=== PATIENT | female | born 1945 | race Caucasian/White ===

== ENCOUNTER → 2017-09-26 12:31 | Outpatient (CLI) | payer MEDICARE, SELFPAY ==
--- NOTE | 2017-09-26 | DI.MG.S_ITS ---
BILATERAL DIGITAL SCREENING MAMMOGRAM 3D/2D WITH CAD: 09/26/2017 CLINICAL: Routine screening. Family history of breast cancer. Comparison is made to exams dated: 09/22/2016 mammogram, 01/23/2015 mammogram, and 01/14/2014 mammogram - [facility]. The tissue of both breasts is extremely dense, which lowers the sensitivity of mammography. Current study was also evaluated with a Computer Aided Detection (CAD) system. There is architectural distortion in the right breast at 1 o'clock middle depth. There is an asymmetry in the left breast sub-areolar depth central to the nipple seen on the mediolateral oblique view only. No other significant masses or calcifications are seen in either breast. IMPRESSION: INCOMPLETE: NEEDS ADDITIONAL IMAGING EVALUATION The architectural distortion in the right breast at 1 o'clock middle depth is indeterminate. Additional views with possible ultrasound are recommended. The asymmetry in the left breast sub-areolar depth central to the nipple seen on the mediolateral oblique view only is indeterminate. Additional views with possible ultrasound are recommended. This exam was interpreted at Station ID: [id number]. NOTE: For mammograms, a report in lay terms will be sent to the patient. Approximately 15% of breast malignancies will not be visualized mammographically. In the management of a palpable breast mass, a negative mammogram must not discourage biopsy of a clinically suspicious lesion. Electronically Signed By: Luther villagran/alejandrina:09/29/2017 13:38:12 letter sent: Additional Imaging Needed ACR BI-RADS Category 0: Incomplete 3340F
== END ==
PROVIDERS: PCP Internal Medicine; Visit Provider Internal Medicine
DX: Z12.31 Encounter for screening mammogram for malignant neoplasm of breast (principal); Z80.3 Family history of malignant neoplasm of breast
CPT/HCPCS: 77063; 77067

== ENCOUNTER → 2017-10-11 13:44 | Outpatient (CLI) | payer MEDICARE, SELFPAY ==
--- NOTE | 2017-10-11 14:13 | DI.MG.S_ITS ---
Patient Name: KAREEN BYRNE date: 1945 Sex: F Attending Physician: Everette Indications: Date: 10/11/2017 14:39 At the request of: NIGEL VALVERDE Procedure: MM diagnostic mammo BI BILATERAL DIGITAL DIAGNOSTIC MAMMOGRAM 3D/2D: 10/11/2017 CLINICAL: Additional evaluation requested from prior study. Comparison is made to exams dated: 09/26/2017 mammogram, 09/22/2016 mammogram, and 01/23/2015 mammogram - [facility]. The tissue of both breasts is extremely dense, which lowers the sensitivity of mammography. Architectural distortion identified in the right breast at 1 o'clock middle depth on screening mammography of 09/26/2017 persists with spot tomosynthesis views. Asymmetry in the left breast sub-areolar depth central to the nipple seen on the mediolateral oblique view only on screening mammography of 09/26/2017 resolves with spot tomosynthesis views. No other significant masses, calcifications, or other findings are seen in either breast. IMPRESSION: INCOMPLETE: NEEDS ADDITIONAL IMAGING EVALUATION 1) Architectural distortion identified in the right breast at 1 o'clock middle depth on screening mammography of 09/26/2017 persists with spot tomosynthesis views and is at a moderate suspicion for malignancy. Targeted ultrasound recommended for further evaluation; should targeted ultrasound not demonstrate an abnormality targetable for ultrasound-guided biopsy, a stereotactic guided biopsy is recommended. 2) Asymmetry in the left breast sub-areolar depth central to the nipple seen on the mediolateral oblique view only on screening mammography of 09/26/2017 resolves with spot tomosynthesis views. Targeted ultrasound recommended for further evaluation. This exam was interpreted at Station ID: [id number]. Continued Report - Page 2 of 2 Patient Name: KAREEN BYRNE date: 1945 Sex: F Attending Physician: Everette Indications: Date: 10/11/2017 14:39 At the request of: NIGEL VALVERDE Procedure: MM diagnostic mammo BI NOTE: For mammograms, a report in lay terms will be sent to the patient. Approximately 15% of breast malignancies will not be visualized mammographically. In the management of a palpable breast mass, a negative mammogram must not discourage biopsy of a clinically suspicious lesion. Electronically Signed By: Kumar Pollard M.D. ecl/:10/11/2017 20:04:13 letter sent: Additional Imaging Needed ACR BI-RADS Category 0: Incomplete 3340F
--- NOTE | 2017-10-11 15:07 | DI.US.S_ITS ---
Patient Name: KAREEN BYRNE date: 1945 Sex: F Attending Physician: Everette Indications: Date: 10/11/2017 15:35 At the request of: NIGEL VALVERDE Procedure: US breast RT limited ULTRASOUND OF RIGHT BREAST: 10/11/2017 CLINICAL: Follow up from addtional views. Comparison is made to exams dated: 10/11/2017 mammogram, 09/26/2017 mammogram, and 09/22/2016 mammogram - [facility]. Real-time and Doppler ultrasound of the right breast were performed. Hoyt scale images of the real-time examination were reviewed. Targeted ultrasonography was performed for the area of architectural distortion identified in the right breast at 1 o'clock middle depth on screening mammography of 09/26/2017 and diagnostic mammomgraphy of 10/11/2017. No correlating sonographic abnormality is identified. IMPRESSION: SUSPICIOUS OF MALIGNANCY - FOLLOW-UP RECOMMENDED No sonographic correlate identified for the area of architectural distortion identified in the right breast at 1 o'clock middle depth on screening mammography of 09/26/2017 and diagnostic mammomgraphy of 10/11/2017. Recommend stereotactic guided-biopsy of this area for further evaluation. These results and recommendations were discussed with the patient by Dr. Efrain Ram of [facility] at the time of the exam. This exam was interpreted at Station ID: [id number]. Electronically Signed By: Kumar Pollard M.D. ecl/:10/11/2017 20:08:30 letter sent: Biopsy Required Ultrasound BI-RADS: 4b Suspicious abnormality - intermediate suspicion of malignancy
--- NOTE | 2017-10-11 15:11 | DI.US.S_ITS ---
Patient Name: KAREEN BYRNE date: 1945 Sex: F Attending Physician: Everette Indications: Date: 10/11/2017 15:35 At the request of: NIGEL VALVERDE Procedure: US breast LT limited ULTRASOUND OF LEFT BREAST: 10/11/2017 CLINICAL: Follow up from addtional views. Comparison is made to exams dated: 10/11/2017 mammogram, 09/26/2017 mammogram, and 09/22/2016 mammogram - [facility]. Real-time and Doppler ultrasound of the left breast were performed. Hoyt scale images of the real-time examination were reviewed. Targeted retroareolar ultrasound demonstrates no sonographic abnormality. Asymmetry in the left breast sub-areolar depth central to the nipple seen on the mediolateral oblique view only on screening mammography of 09/26/2017 resolves with spot tomosynthesis views. Targeted ultrasound recommended for further evaluation. IMPRESSION: NEGATIVE There is no sonographic evidence of malignancy in the left breast. Return to annual mammogram screening schedule for the left breast is recommended. Please note that a stereotactic guided biopsy of the right breast was recommended in the diagnostic mammography and ultrasound exams performed earlier today 10/11/17. This exam was interpreted at Station ID: [id number]. Electronically Signed By: Kumar Pollard M.D. ecl/:10/11/2017 20:16:47 letter sent: Normal Exam Ultrasound BI-RADS: 1 Negative
== END ==
PROVIDERS: PCP Internal Medicine; Visit Provider Internal Medicine
DX: R92.8 Other abnormal and inconclusive findings on diagnostic imaging of breast (principal); N64.89 Other specified disorders of breast
CPT/HCPCS: 76642; 77066; G0279

== ENCOUNTER → 2017-11-10 13:47 | Outpatient (CLI) | payer MEDICARE, SELFPAY | PROVIDERS: PCP Internal Medicine; Visit Provider Internal Medicine | DX: M85.852 Other specified disorders of bone density and structure, left thigh (principal); Z78.0 Asymptomatic menopausal state; Z82.62 Family history of osteoporosis; Z87.891 Personal history of nicotine dependence | CPT/HCPCS: 77080 ==

== ENCOUNTER → 2017-11-30 12:02 | Outpatient (CLI) | payer MEDICARE, SELFPAY ==
[2017-11-30 12:57] LABS: Blood Urea Nitrogen 18 mg/dL (7-17); Calcium 9.3 mg/dL (8.4-10.2); Carbon Dioxide 29 mmol/L (22-32); Chloride 93 mmol/L (98-107); Estimated Glomerular Filt Rate > 60.0 mL/min (>60); Glucose 88 mg/dL (80-110); HEMOLYSIS < 15 (0-50); Potassium 4.5 mmol/L (3.4-5.1); Sodium 132 mmol/L (137-145)
== END ==
PROVIDERS: PCP Internal Medicine; Visit Provider Internal Medicine Cardiovascular Disease
DX: R60.0 Localized edema (principal)
CPT/HCPCS: 36415; 80048

== ENCOUNTER → 2017-12-07 14:16 | Outpatient (CLI) | payer MEDICARE, SELFPAY ==
[2017-12-08 16:25] LABS: Collection Time Urine 24 Hours; Sodium 24 Hour Urine 69 mmol/day (40-220); Sodium Urine Random 23 mmol/L (30-90); Total Volume Urine 3000 mL
== END ==
PROVIDERS: PCP Internal Medicine; Visit Provider Internal Medicine Cardiovascular Disease
DX: E87.1 Hypo-osmolality and hyponatremia (principal)
CPT/HCPCS: 84300

== ENCOUNTER → 2017-12-08 14:16 | Outpatient (CLI) | payer MEDICARE, SELFPAY | PROVIDERS: PCP Internal Medicine; Visit Provider Internal Medicine Cardiovascular Disease | DX: E87.1 Hypo-osmolality and hyponatremia (principal) ==

== ENCOUNTER → 2017-12-20 13:49 | Outpatient (CLI) | payer MEDICARE, SELFPAY ==
[2017-12-20 15:24] LABS: Alanine Aminotransferase 20 IU/L (9-52); Albumin 4.1 g/dL (3.5-5.0); Albumin Globulin Ratio 1.8 (1.0-2.8); Alkaline Phosphatase 34 U/L (38-126); Aspartate Aminotransferase 21 IU/L (14-36); BUN Creatinine Ratio 26.7 (6-22); Bilirubin Total 0.4 mg/dL (0.2-1.3); Blood Urea Nitrogen 16 mg/dL (7-17); Calcium 9.6 mg/dL (8.4-10.2); Carbon Dioxide 32 mmol/L (22-32); Chloride 100 mmol/L (98-107); Estimated Glomerular Filt Rate > 60.0 mL/min (>60); Globulin 2.3 g/dL (1.7-4.1); Glucose 85 mg/dL (80-110); HEMOLYSIS < 15 (0-50); Potassium 4.3 mmol/L (3.4-5.1); Sodium 139 mmol/L (137-145); Total Protein 6.4 g/dL (6.3-8.2)
[2017-12-20 17:21] LABS: Thyroid Stimulating Hormone 3.01 uIU/mL (0.47-4.68)
[2017-12-22 15:59] LABS: Osmolality, Serum 290 mosm/kg (260-310)
== END ==
PROVIDERS: Family Provider Internal Medicine; PCP Internal Medicine; Visit Provider Internal Medicine Cardiovascular Disease
DX: R60.9 Edema, unspecified (principal); R60.0 Localized edema; E87.1 Hypo-osmolality and hyponatremia
CPT/HCPCS: 36415; 80053; 83930; 84443

== ENCOUNTER → 2018-04-11 14:04 | Outpatient (CLI) | payer MEDICARE, SELFPAY ==
--- NOTE | 2018-04-11 | DI.CT.S_ITS ---
PROCEDURE: CT ANGIO CHEST PE PROTOCOL INDICATIONS: CHEST PAIN TECHNIQUE: After the administration of intravenous contrast, 2 mm thick sections acquired from the pulmonary apices to the posterior costophrenic angles. 3-dimensional maximum intensity projection (MIP) coronal and sagittal reformats were then acquired through the thorax. For radiation dose reduction, the following was used: automated exposure control, adjustment of mA and/or kV according to patient size. COMPARISON: None. FINDINGS: Image quality: Excellent. Pulmonary arteries: Pulmonary arteries are normal in size, and demonstrate no intraluminal filling defects to suggest central pulmonary embolism. Lungs and pleura: Lungs are clear. No pleural effusions or pneumothorax. Central and peripheral airways are patent. Mediastinum: Heart size is normal, without pericardial effusion. No mediastinal or hilar adenopathy. Thoracic aorta is normal in caliber and enhancement. Esophagus is normal in caliber, without hiatal hernia. Bones and chest wall: No suspicious bony lesions. Ribs and thoracic spine appear intact throughout. Thyroid gland is unremarkable. No axillary or supraclavicular adenopathy. Abdomen: Visualized upper abdominal solid organs appear normal in the early arterial phase of enhancement. IMPRESSION: 1. No acute pulmonary embolus. Dictated by: Celsa Weinberg M.D. on 04/11/2018 at 15:44 Approved by: Celsa Weinberg M.D. on 04/11/2018 at 15:51
[2018-04-11 14:39] LABS: Blood Urea Nitrogen 30 mg/dL (7-17); Estimated Glomerular Filt Rate 54.5 mL/min (>60)
== END ==
PROVIDERS: Family Provider Internal Medicine; PCP Internal Medicine; Visit Provider Internal Medicine
DX: R07.9 Chest pain, unspecified (principal); I10 Essential (primary) hypertension
CPT/HCPCS: 36415; 71275; 82565; 84520; Q9967

== ENCOUNTER → 2018-08-28 12:44 | Outpatient (CLI) | payer MEDICARE, SELFPAY ==
--- NOTE | 2018-08-28 | DI.MG.S_ITS ---
BILATERAL DIGITAL DIAGNOSTIC MAMMOGRAM 3D/2D SHORT-TERM FOLLOW-UP: 08/28/2018 CLINICAL: Late short follow up, due bilateral. Family history of breast cancer. Comparison is made to exams dated: 11/21/2017 breast MRI - [facility], 10/11/2017 mammogram, 09/26/2017 mammogram, and 09/22/2016 mammogram - [facility]. The tissue of both breasts is extremely dense, which lowers the sensitivity of mammography. There is irregular equal density architectural distortion with an indistinct margin in the right breast at 1 o'clock middle depth. This is not significantly changed. No other significant masses, calcifications, or other findings are seen in either breast. IMPRESSION: INCOMPLETE: NEEDS ADDITIONAL IMAGING EVALUATION The irregular equal density architectural distortion in the right breast is indeterminate. An ultrasound is recommended. This exam was interpreted at Station ID: [id number]. NOTE: For mammograms, a report in lay terms will be sent to the patient. Approximately 15% of breast malignancies will not be visualized mammographically. In the management of a palpable breast mass, a negative mammogram must not discourage biopsy of a clinically suspicious lesion. Electronically Signed By: Nimesh leyva/alejandrina:08/28/2018 13:26:43 letter sent: Need Ultrasound ACR BI-RADS Category 0: Incomplete 3340F
--- NOTE | 2018-08-28 | DI.US.S_ITS ---
LIMITED ULTRASOUND OF RIGHT BREAST: 08/28/2018 CLINICAL: Patient returns today to evaluate an architectural distortion in the right breast. Comparison is made to exams dated: 08/28/2018 mammogram - [facility], 11/21/2017 breast MRI - [facility], 10/11/2017 ultrasound, 10/11/2017 ultrasound, 10/11/2017 mammogram, and 09/26/2017 mammogram - [facility]. Real-time ultrasound of the right breast upper inner quadrant was performed on the area of interest. IMPRESSION: PROBABLY BENIGN There is no abnormality seen in the right breast to correspond with the mammography finding in the upper inner quadrant. A follow-up mammogram in 12 months is recommended. This exam was interpreted at Station ID: [id number]. Electronically Signed By: Nimesh leyva/alejandrina:08/28/2018 17:32:44 letter sent: Followup Recommended Ultrasound BI-RADS: 3 Probably benign
== END ==
PROVIDERS: Family Provider Internal Medicine; PCP Internal Medicine; Visit Provider Internal Medicine
DX: R92.8 Other abnormal and inconclusive findings on diagnostic imaging of breast (principal); Z80.3 Family history of malignant neoplasm of breast
CPT/HCPCS: 76642; 77066; G0279

== ENCOUNTER 2018-12-11 09:36 | Day surgery (SDC) | payer MEDICARE, SELFPAY ==
[2018-12-11] MEDS: PROPARACAINE 0.5% OPHTH SOL 2 DROPS EYE-OP (10:40)
[2018-12-11] MEDS: CATARACT EYE COMPOUND (10 DROPS/SYRINGE) 3 DROPS EYE-OP (10:42)
[2018-12-11 10:44] VITALS: BP 115/76; PULSE 77; RESP 16; TEMP 36.6; O2SAT 98; BMI 19.7
--- NOTE | 2018-12-11 11:52 | PM.PREOP ---
Pre-operative Note Interval Note History & Physical reviewed/Exam performed by Physician: No Changes to H&P: No
--- NOTE | 2018-12-11 11:52 | PM.OP.1 ---
Operative Date/Time/Diagnoses Pre-op diagnosis: Nuclear cataract right eye Procedure & Clinicians Procedure: Cataract Surgery Same procedure as scheduled: Yes Surgeon: Boston Lagunas Anesthesia Type: MAC +/- and Sedation Operative Notes Procedure in detail: Patient brought to the operating suite. Tetracaine drops placed in the right eye. Patient was prepped and draped in sterile manner. Wire lid speculum was placed in the eye. Betadine drops were placed on the eye. This was irrigated. Lidocaine jelly was placed on the eye. A paracentesis port was created with a side-port blade. 0.1 mL 1% preservative free lidocaine was injected into the anterior chamber. The anterior chamber was deepened with viscoelastic. 2.6 mm keratome was used to create a temporal clear corneal incision. Cystotome and Utrata forceps were used to create continuous tear capsulorrhexis. Balanced salt solution was used to hydro dissect the nucleus. The miloop was used to crack the nucleous. The phacoemulsification handpiece was inserted and the nucleus was removed using the stop and chop technique. The irrigation aspiration handpiece was inserted and the remaining cortex was removed. Anterior chamber was deepened with viscoelastic. An Gary [id number] intraocular lens with a power of 22.0 was injected into the capsular bag. Irrigation aspiration handpiece was inserted and the remaining viscoelastic was removed. Incision was hydrated with balanced salt solution and found to be leak free with pressure with Weck-Lizzie sponges. 0.1 mL Vigamox injected anterior chamber. 0.3 mL Kenalog 10 mg was injected subconjunctivally. Lid speculum was removed. The patient left the operating room in excellent condition. Complications: none Post-operative Condition: stable Disposition: same day surgery
[2018-12-11] MEDS: LIDOCAINE JELLY 2% 5 ML 1 APPLIC TOP (12:18)
[2018-12-11] MEDS: MOXIFLOXACIN INJ 5 MG/ML VIAL EYE-OP (12:18)
[2018-12-11] MEDS: CHONDROIDTIN/SOD HYALURONATE 1.05 ML SYRINGE INTRAOCULA (12:18)
[2018-12-11] MEDS: TRIAMCINOLONE 50 MG/5 ML VIAL INJ (12:19)
[2018-12-11] MEDS: BALANCED SALT IRRIG SOLN NO.2 500 ML, EPINEPHrine 1 MG IRR (12:19)
[2018-12-11] MEDS: TETRACAINE 0.5% OPHTH DROPS 4 ML 2 DROPS EYE-OP (12:19)
[2018-12-11] MEDS: PHENYLEPHRINE/LIDOCAINE VIAL (OR) 0.2 ML EYE-OP (12:19)
[2018-12-11 12:32] VITALS: BP 122/84; PULSE 74; RESP 14; TEMP 36.3; O2SAT 100
== END 2018-12-11 12:45 | disposition home or self-care (01) ==
LOC: OR 09:38
PROVIDERS: PCP Internal Medicine; Visit Provider Ophthalmology
PROC: (CPT 66984; principal; 2018-12-11 11:15)
DX: H25.11 Age-related nuclear cataract, right eye (principal)
CPT/HCPCS: 66984; J0171; J2250; J3301; V2787

== ENCOUNTER 2018-12-18 07:02 | Day surgery (SDC) | payer MEDICARE, SELFPAY ==
[2018-12-18] MEDS: PROPARACAINE 0.5% OPHTH SOL 2 DROPS EYE-OP (08:01)
[2018-12-18 08:04] VITALS: BP 111/75; PULSE 70; RESP 16; TEMP 36.7; O2SAT 100; BMI 19.7
[2018-12-18] MEDS: CATARACT EYE COMPOUND (10 DROPS/SYRINGE) 3 DROPS EYE-OP (08:05)
--- NOTE | 2018-12-18 08:24 | PM.PREOP ---
Pre-operative Note Interval Note History & Physical reviewed/Exam performed by Physician: No Changes to H&P: No
--- NOTE | 2018-12-18 08:25 | PM.OP.1 ---
Operative Date/Time/Diagnoses Pre-op diagnosis: Nuclear Cataract Left eye Post-op diagnosis: same Procedure & Clinicians Surgeon: Boston Lagunas Anesthesia Type: MAC +/- and Sedation Operative Notes Procedure in detail: Patient brought to the operating suite. Tetracaine drops placed in the left eye. marking instrument was used to karon the vertical and horizontal meridians. Patient was prepped and draped in sterile manner. Wire lid speculum was placed in the eye. Marking instrument was used to karon the 175 degree meridian. Betadine drops were placed on the eye. This was irrigated. Lidocaine jelly was placed on the eye. A paracentesis port was created with a side-port blade. 0.1 mL 1% preservative free lidocaine was injected into the anterior chamber. The anterior chamber was deepened with viscoelastic. 2.6 mm keratome was used to create a temporal clear corneal incision. Cystotome and Utrata forceps were used to create continuous tear capsulorrhexis. Balanced salt solution was used to hydro dissect the nucleus. The phacoemulsification handpiece was inserted and the nucleus was removed using the stop and chop technique. The irrigation aspiration handpiece was inserted and the remaining cortex was removed. Anterior chamber was deepened with viscoelastic. An Gary [id number] intraocular lens with a power of 21.0 was injected into the capsular bag. Irrigation aspiration handpiece was inserted and the remaining viscoelastic was removed. The lens was rotated to the 175 degree meridian. Incision was hydrated with balanced salt solution and found to be leak free with pressure with Weck-Lizzie sponges. 0.1 mL Vigamox injected anterior chamber. 0.3 mL Kenalog 10 mg was injected subconjunctivally. Lid speculum was removed. The patient left the operating room in excellent condition. Complications: none Post-operative Condition: stable Disposition: same day surgery
[2018-12-18] MEDS: LIDOCAINE JELLY 2% 5 ML 1 APPLIC TOP (08:38)
[2018-12-18] MEDS: MOXIFLOXACIN INJ 5 MG/ML VIAL EYE-OP (08:38)
[2018-12-18] MEDS: TRIAMCINOLONE 50 MG/5 ML VIAL INJ (08:38)
[2018-12-18] MEDS: CHONDROIDTIN/SOD HYALURONATE 1.05 ML SYRINGE INTRAOCULA (08:38)
[2018-12-18] MEDS: TETRACAINE 0.5% OPHTH DROPS 4 ML 2 DROPS EYE-OP (08:38)
[2018-12-18] MEDS: BALANCED SALT IRRIG SOLN NO.2 500 ML, EPINEPHrine 1 MG IRR (08:39)
[2018-12-18] MEDS: PHENYLEPHRINE/LIDOCAINE VIAL (OR) 0.2 ML EYE-OP (08:39)
[2018-12-18 08:50] VITALS: BP 115/69; PULSE 60; RESP 16; TEMP 36.6; O2SAT 100
[2018-12-18 08:55] VITALS: BP 97/74; PULSE 69; RESP 15; TEMP 36.3; O2SAT 100
== END 2018-12-18 09:05 | disposition home or self-care (01) ==
LOC: OR 07:04
PROVIDERS: PCP Internal Medicine; Visit Provider Ophthalmology
PROC: (CPT 66984; principal; 2018-12-18 08:45)
DX: H25.12 Age-related nuclear cataract, left eye (principal)
CPT/HCPCS: 66984; J0171; J2250; J3010; J3301; V2787

== ENCOUNTER → 2018-12-20 14:45 | Outpatient (CLI) | payer MEDICARE, SELFPAY ==
--- NOTE | 2018-12-20 | DI.MRI.S_ITS ---
PROCEDURE: MR KNEE LT WO CON INDICATIONS: OTHER SPECIFIED SOFT TISSUE DISORDER TECHNIQUE: Noncontrast sagittal PD fast spin echo and T2 fast spin echo with fat saturation, sagittal 3-D FLASH with fat saturation; coronal T1 spin echo and PD fast spin echo with fat saturation, and axial PD fast spin echo with fat saturation through the knee. COMPARISON: [facility], , KNEE 3V LEFT, 06/22/2017, 12:54. FINDINGS: Image quality: Excellent. Menisci: There is ill-defined tear in the peripheral aspect of the posterior horn of the medial meniscus. The lateral meniscus demonstrates normal morphology and internal signal. The meniscal root ligaments appear intact. Cruciate ligaments: The anterior and posterior cruciate ligaments appear intact. Medial structures: The medial collateral ligament appears intact. The posterior oblique ligament, semimembranosus tendon insertions, oblique popliteal ligament, and meniscocapsular junction appear intact. Visualized portions of the pes anserinus tendons appear normal. No abnormal bursal fluid. Lateral structures: The lateral collateral ligament, long and short heads of the biceps femoris tendon appear intact. The popliteus tendon appears normal; the popliteofibular ligament appears intact. The posterosuperior and anteroinferior popliteomeniscal fascicles appear intact. The arcuate and fabellofibular ligaments appear intact, on either side of the lateral inferior geniculate artery. Iliotibial band appears normal. Anterior structures: There is patella saumya lateral subluxation of patella. The quadriceps and patellar tendons appear intact. There is thickening and increased signal in the distal quadriceps tendon consistent with tendinitis. No edema in the infrapatellar fat pad. Bones and cartilage: No bone marrow contusions or fractures. There is a 1.2 cm mass in the proximal tibial metaphysis demonstrating serpiginous hypointense signal. This correlates with a sclerotic lesion seen on x-ray, most likely an enchondroma. Severe patellar chondromalacia. There is mild cartilage thinning and fibrillation of the medial and lateral femorotibial compartments. Joint space: There is small knee joint effusion. There is a large multilocular Campos's cyst. Normal appearing synovial plicae are incidentally noted. There are multiple intra-articular bodies in the superior lateral aspect of the knee joint. IMPRESSION: 1. Ill-defined tear in the peripheral aspect of the posterior horn of the medial meniscus. 2. Severe chondromalacia patella. There is patella saumya and lateral subluxation of patella. 3. Quadriceps tendinitis. 4. Large multilocular Campos's cyst. 5. Small knee joint effusion. 6. 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 7. Multiple intraarticular bodies in the superior lateral knee joint. Dictated by: Nathaniel Crawley M.D. on 12/20/2018 at 16:01 Approved by: Nathaniel Crawlye M.D. on 12/20/2018 at 18:29
== END ==
PROVIDERS: PCP Internal Medicine; Visit Provider Internal Medicine
DX: M79.89 Other specified soft tissue disorders (principal); S83.222A Peripheral tear of medial meniscus, current injury, left knee, initial encounter; M22.42 Chondromalacia patellae, left knee; D16.22 Benign neoplasm of long bones of left lower limb; M71.22 Synovial cyst of popliteal space [Baker], left knee; M25.462 Effusion, left knee
CPT/HCPCS: 73721

== ENCOUNTER → 2019-01-23 15:25 | Outpatient (CLI) | payer MEDICARE, SELFPAY ==
[2019-01-23 16:30] LABS: Blood Urea Nitrogen 20 mg/dL (7-17); Calcium 9.4 mg/dL (8.4-10.2); Carbon Dioxide 29 mmol/L (22-32); Chloride 100 mmol/L (98-107); Estimated Glomerular Filt Rate > 60.0 mL/min (>60); Glucose 123 mg/dL (80-110); HEMOLYSIS < 15 (0-50); Potassium 3.8 mmol/L (3.4-5.1); Sodium 139 mmol/L (137-145)
[2019-01-23 16:57] LABS: Thyroid Stimulating Hormone 3.25 uIU/mL (0.47-4.68)
== END ==
PROVIDERS: Family Provider Internal Medicine; PCP Internal Medicine; Visit Provider Internal Medicine Cardiovascular Disease
DX: R60.9 Edema, unspecified (principal); I34.0 Nonrheumatic mitral (valve) insufficiency; R94.31 Abnormal electrocardiogram [ECG] [EKG]
CPT/HCPCS: 36415; 80048; 83735; 84443

== ENCOUNTER → 2019-01-29 13:51 | Outpatient (CLI) | payer MEDICARE, SELFPAY ==
--- NOTE | 2019-01-29 | DI.ECHO.S_ITS ---
[facility]---------+ [facility] +---------+ : : [address] : : : : [id number] : : : : Phone: [phone]+ Echocardiogram Report + + :Name: KAREEN BYRNE Study Date: 01/29/2019 Height: 64 in : :[facility] Weight: 113 lb : : Gender: Female BSA: 1.5 m2 : :: 1945 Age: 73 yrs BP: 112/80 mmHg: :Reason For Study: Abnormal ECG : :Ordering Physician: Latia : :Maddy Bass Performed By: Sally Lambert : :Referring: Callie Gaviria : + + Interpretation Summary Left ventricular ejection fraction is estimated to be 55 +/- 5%. Small area of focal hypokinesis in the apical posterolateral and anterolateral wall is noted. There is no significant valvular heart disease. Procedure: A two-dimensional transthoracic echocardiogram with color flow and Doppler was performed. Comparison is made with the echocardiogram of 09/02/2015. The study quality was technically good. The patient had occasional PVCs during the exam. The patient was in normal sinus rhythm during the exam. Left Ventricle: The left ventricle is normal in size, wall thickness, and systolic function without any focal wall motion abnormalities. There is no ventricular septal defect visualized. Left ventricular ejection fraction is estimated to be 55 +/- 5%. Small area of focal hypokinesis in the apical posterolateral and anterolateral wall is noted. Compared to the prior exam, the left ventricular wall motion has not changed. Right Ventricle: The right ventricle is normal in size and function. Atria: Both atria are normal in size. There is no Doppler evidence for an interatrial shunt. Mitral Valve: The mitral valve is normal in structure and function. There is trace mitral regurgitation. Aortic Valve: The aortic valve is trileaflet. The aortic valve opens well. No aortic regurgitation is present. Tricuspid Valve: The tricuspid valve is normal in structure and function. There is trace tricuspid regurgitation. The right ventricular systolic pressure is estimated to be at least 21 mmHg based on an estimated right atrial pressure of 3 mm Hg. Pulmonic Valve: The pulmonic valve is not well visualized. Great Vessels: The aortic root is normal size. The ascending aorta is at the upper limits of normal in size. The aortic arch is normal in size. The IVC is of normal diameter and collapses greater than 50% with a sniff. This suggests a low right atrial pressure of 3 mm Hg. Pericardium/ Pleura There is no pericardial effusion. MMode/2D Measurements & Calculations LVIDd: 4.6 cm LVOT diam: 2.2 cm LVIDs: 3.3 cm Ao root diam: 3.1 cm FS: 28.9 % Aortic Jxn: 2.7 cm EPSS: 0.70 cm asc Aorta Diam: 3.4 cm IVSd: 0.60 cm Ao Arch Diam (Prox Trans): 2.7 cm LVPWd: 0.53 cm LV kingsley. diameter/BSA (cm/m^2): 3.0 LV sys. diameter/BSA (cm/m^2): 2.1 LA A2 area: 17.5 cm2 RA long axis: 4.3 cm LA A4 area: 15.1 cm2 RA area: 10.7 cm2 LA length (vol): 4.6 cm RA vol: 22.7 ml LA vol: 49.3 ml RA : 14.8 ml/m2 LA vol index: 32.1 ml/m2 IVC diam: 1.00 cm RVD1 (basal): 3.3 cm RVD2 (mid): 2.4 cm TAPSE: 2.0 cm Doppler Measurements & Calculations Ao V2 max: 124.5 cm/sec LVOT Max Toño: 70.6 cm/sec Ao V2 mean: 91.2 cm/sec LV V1 max P.0 mmHg Ao max P.2 mmHg LV V1 VTI: 15.9 cm Ao mean P.7 mmHg DONNIE(I,D): 2.1 cm2 Ao V2 VTI: 28.8 cm DONNIE(V,D): 2.2 cm2 sev ratio: 0.55 DONNIE indexed to BSA (cm^2/m^2): 1.4 MV E max toño: 68.9 cm/sec TR max toño: 214.3 cm/sec MV A max toño: 92.1 cm/sec TR max P.4 mmHg MV E/A: 0.75 PA V2 max: 67.2 cm/sec Med Peak E' Toño: 3.8 cm/sec PA V2 mean: 44.1 cm/sec E/E' med: 18.2 PA mean P.89 mmHg Lat Peak E' Toño: 5.3 cm/sec PA Accel Time: 0.08 sec E/E' lat: 13.1 E/e' average: 15.6 MV dec time: 0.23 sec MV P1/2t: 68.1 msec MV P1/2t max toño: 68.9 cm/sec SV(LVOT): 60.5 ml MVA(P1/2t): 3.2 cm2 Reading Physician:09:32 AM
== END ==
PROVIDERS: Family Provider Internal Medicine; PCP Internal Medicine; Visit Provider Internal Medicine Cardiovascular Disease
DX: R94.31 Abnormal electrocardiogram [ECG] [EKG] (principal); I34.0 Nonrheumatic mitral (valve) insufficiency; I35.1 Nonrheumatic aortic (valve) insufficiency
CPT/HCPCS: 93306

== ENCOUNTER → 2020-02-05 14:36 | Outpatient (CLI) | payer MEDICARE, SELFPAY ==
--- NOTE | 2020-02-05 | DI.RAD.S_ITS ---
PROCEDURE: XR FOOT RT MIN 3V INDICATIONS: RT FOOT PAIN TECHNIQUE: 3 views of the foot were acquired. COMPARISON: None. FINDINGS: Bones: No fractures or dislocations. No suspicious bony lesions. Soft tissues: No tibiotalar joint effusion. Achilles tendon appears normal. IMPRESSION: Source of right foot pain is not seen. A small plantar fascia insertion spur is seen at the posterior calcaneus. Dictated by: Efrain Ram M.D. on 02/05/2020 at 15:35 Approved by: Efrain Ram M.D. on 02/05/2020 at 15:36
== END ==
PROVIDERS: Family Provider Internal Medicine; PCP Internal Medicine; Referring Provider Internal Medicine; Visit Provider Internal Medicine
DX: M79.671 Pain in right foot (principal); M77.31 Calcaneal spur, right foot
CPT/HCPCS: 73630

== ENCOUNTER → 2020-02-14 08:35 | Outpatient (CLI) | payer MEDICARE, SELFPAY ==
[2020-02-14 08:58] LABS: COVID19 -Nasal RAPID Negative (Negative)
== END ==
PROVIDERS: Family Provider Internal Medicine; PCP Internal Medicine; Visit Provider Physician Assistant
DX: Z11.59 Encounter for screening for other viral diseases (principal)
CPT/HCPCS: 87635

== ENCOUNTER → 2020-09-09 18:39 | Outpatient (CLI) | payer MEDICARE, SELFPAY | PROVIDERS: Family Provider Internal Medicine; PCP Internal Medicine; Visit Provider Nurse Practitioner Family | DX: R30.0 Dysuria (principal) | CPT/HCPCS: 87077; 87086; 87186 ==

== ENCOUNTER → 2021-03-17 07:58 | Outpatient (CLI) | payer MEDICARE, SELFPAY ==
[2021-03-17 09:19] LABS: COVID19 -Nasal RAPID Negative (Negative)
== END ==
PROVIDERS: Family Provider Internal Medicine; PCP Internal Medicine; Visit Provider Nurse Practitioner Family
DX: Z20.822 Contact with and (suspected) exposure to COVID-19 (principal)
CPT/HCPCS: 87635

== ENCOUNTER → 2021-05-03 14:39 | Outpatient (CLI) | payer MEDICARE, SELFPAY ==
--- NOTE | 2021-05-03 | DI.RAD.S_ITS ---
PROCEDURE: XR DEXA AXIAL SKELETON INDICATIONS: F/U OSTEOPENIA COMPARISON: [facility], CR, XR DEXA AXIAL SKELETON, 11/10/2017, 14:22. FINDINGS: This blank DEXA report has been sent in error by the PACS system. The correct and complete report will be forthcoming in 1-2 days. Thank you for your patience and understanding. Dictated by: Guillermina Way MD, PhD on 05/03/2021 at 16:49 Approved by: Guillermina Way MD, PhD on 05/03/2021 at 16:49
== END ==
PROVIDERS: Family Provider Internal Medicine; PCP Internal Medicine; Referring Provider Internal Medicine; Visit Provider Internal Medicine
DX: Z78.0 Asymptomatic menopausal state (principal); M85.852 Other specified disorders of bone density and structure, left thigh; Z82.62 Family history of osteoporosis; Z87.891 Personal history of nicotine dependence
CPT/HCPCS: 77080

== ENCOUNTER → 2021-05-20 16:10 | Outpatient (CLI) | payer MEDICARE, SELFPAY ==
--- NOTE | 2021-05-20 16:15 | DI.MG.S_ITS ---
BILATERAL DIGITAL SCREENING MAMMOGRAM 3D/2D WITH CAD: 05/20/2021 CLINICAL: Routine screening. Family history of breast cancer. Comparison is made to exams dated: 08/28/2018 mammogram, 10/11/2017 mammogram, and 09/22/2016 mammogram - [facility]. The tissue of both breasts is heterogeneously dense. This may lower the sensitivity of mammography. Current study was also evaluated with a Computer Aided Detection (CAD) system. No significant masses, calcifications, or other findings are seen in either breast. There has been no significant interval change. IMPRESSION: NEGATIVE There is no mammographic evidence of malignancy. A 1 year screening mammogram is recommended. This exam was interpreted at Station ID: [id number]. NOTE: For mammograms, a report in lay terms will be sent to the patient. Approximately 15% of breast malignancies will not be visualized mammographically. In the management of a palpable breast mass, a negative mammogram must not discourage biopsy of a clinically suspicious lesion. Electronically Signed By: Celsa maharaj/alejandrina:05/21/2021 09:59:27 letter sent: Normal Exam ACR BI-RADS Category 1: Negative [id number]
== END ==
PROVIDERS: Family Provider Internal Medicine; PCP Internal Medicine; Referring Provider Internal Medicine; Visit Provider Internal Medicine
DX: Z12.31 Encounter for screening mammogram for malignant neoplasm of breast; Z80.3 Family history of malignant neoplasm of breast
CPT/HCPCS: 77063; 77067

== ENCOUNTER → 2021-07-16 11:57 | Outpatient (CLI) | payer MEDICARE, SELFPAY ==
--- NOTE | 2021-07-16 12:00 | DI.RAD.S_ITS ---
PROCEDURE: XR SHOULDER RT MIN 2V INDICATIONS: right shoulder pain TECHNIQUE: 3 views of the shoulder were acquired. COMPARISON: None. FINDINGS: Bones: No fractures or dislocations. Mild to moderate joint space loss and osteophytosis of the AC and glenohumeral articulations. Visualized ribs appear intact. Soft tissues: No suspicious soft tissue calcifications. IMPRESSION: No acute osseous abnormality. Dictated by: Manuel Salvador M.D. on 07/16/2021 at 13:28 Approved by: Manuel Salvador M.D. on 07/16/2021 at 13:30
--- NOTE | 2021-07-16 12:00 | DI.RAD.S_ITS ---
PROCEDURE: XR LUMBAR SPINE 2-3V INDICATIONS: low back pain TECHNIQUE: 2 views of the lumbar spine were acquired. COMPARISON: None. FINDINGS: Bones: 5 [id number] vertebrae are present. Degenerative retrolisthesis of L1 on L2 measures approximately 7 mm. There is mild dextro curvature, centered at L1. Lower lumbar facet arthropathy. Multilevel disc height loss, most significant at L4-L5. No vertebral body compression fractures. No suspicious bony lesions. Soft tissues: Overlying bowel gas pattern is normal. No suspicious soft tissue calcifications. IMPRESSION: Diffuse degenerative change. No evidence acute bony abnormality of the lumbar spine. If clinical suspicion and/or symptoms persist, further assessment with repeat plain films, or advanced imaging (e.g., CT, MRI, or bone scan) may be helpful for further assessment. Dictated by: Nico Brar M.D. on 07/16/2021 at 13:56 Approved by: Nico Brar M.D. on 07/16/2021 at 13:58
[2021-07-16 13:00] LABS: Hematocrit 39.2 % (36-46); Hemoglobin 13.3 g/dL (12.0-16.0); Mean Corpuscular Volume 94.1 fL (80-100); Platelet Count 302 X10^3/uL (150-400); Red Blood Cell Count 4.16 X10^6/uL (4.0-5.2); Red Cell Distribution Width 13.6 % (11.6-14.8); White Blood Cell Count 5.8 X10^3/uL (4.5-11.0)
[2021-07-16 13:18] LABS: Alanine Aminotransferase 16 IU/L (<35); Albumin 4.3 g/dL (3.5-5.0); Albumin Globulin Ratio 1.7 (1.0-2.8); Alkaline Phosphatase 42 U/L (38-126); Aspartate Aminotransferase 24 IU/L (14-36); BUN Creatinine Ratio 25.9 (6-22); Bilirubin Total 0.3 mg/dL (0.2-1.3); Blood Urea Nitrogen 15 mg/dL (7-17); Calcium 9.2 mg/dL (8.4-10.2); Carbon Dioxide 29 mmol/L (22-32); Chloride 103 mmol/L (98-107); Estimated Glomerular Filt Rate > 60 mL/min (>60); Globulin 2.5 g/dL (1.7-4.1); Glucose 92 mg/dL (80-110); HEMOLYSIS < 15 (0-50); Potassium 4.2 mmol/L (3.4-5.1); Sodium 137 mmol/L (137-145); Total Protein 6.8 g/dL (6.3-8.2)
[2021-07-16 13:49] LABS: TSH w/ Reflex to FT4 1.27 uIU/mL (0.47-4.68)
== END ==
PROVIDERS: Family Provider Internal Medicine; PCP Internal Medicine; Referring Provider Internal Medicine; Visit Provider Internal Medicine
DX: M47.816 Spondylosis without myelopathy or radiculopathy, lumbar region (principal); M54.50 Low back pain, unspecified; I10 Essential (primary) hypertension; M75.81 Other shoulder lesions, right shoulder; G89.29 Other chronic pain
CPT/HCPCS: 36415; 72100; 73030; 80053; 84443; 85027

== ENCOUNTER 2021-10-07 14:30 | Outpatient (RCR) | payer MEDICARE, SELFPAY ==
--- NOTE | 2021-08-31 16:00 | PT.OPPOC ---
Physical, Occupational & Speech Therapy At [facility] Current Diagnoses Other chronic pain (08/31/21) Low back pain, unspecified (08/31/21) Other shoulder lesions, right shoulder (08/31/21) Visit Care Team Role Provider Type Elías Weldon MD Attending Provider Physician Family Provider Primary Care Provider Referring Provider Specialty: Internal Medicine Address: [address] [place] [address], [facility] Email: [email or web address] Plan Of Care PT-OP-T Assessment and Plan Start: 08/27/21 15:44 Freq: Status: Active Protocol: Document 08/31/21 14:30 AMB (Rec: 08/31/21 16:24 AMB [id number]) Physical Therapy Assessment Rehab Potential Rehabilitation Potential Good Evaluation Complexity Number of Personal Factors/Comorbidities 1-2 Number of Body Systems Impaired 1-2 Clinical Presentation at Evaluation Stable Impairments Impairments Activity Tolerance,Functional Activities,Pain,Posture,ROM, Strength Goals Two Impairment Back Short Term Goal (STG) Beatrice will don her shoes and socks without back/hip pain. STG Duration 4 weeks Catering Server Goal (LTG) Beatrice will perform all bed mobility without back pain. LTG Duration 10 weeks One Impairment Shoulder Short Term Goal (STG) Beatrice will improve her passive shoulder flexion to at least 150 degrees. STG Duration 4 weeks Catering Server Goal (LTG) Beatrice will show improved shoulder strength by lifting a plate into her microwave without shoulder pain. LTG Duration 10 weeks Assessment Summary Assessment Beatrice attends physical therapy for recent onset right shoulder pain s/p pruning and more chronic left lumbar/hip pain for the past 2 years. The back pain is mostly limiting in the morning with stiffness, but does radiate into the front of the hip and she does have tenderness over iliopsoas, but has maintained her hip rotation ROM well. Her right shoulder was weak and painful worst with external rotation. She did have pain with end range motion with flexion and horizontal adduction. She will benefit from physical therapy for strengthening of her core musculature, scapular stabilizers, and mobility training of her lumbar, hip, and shoulder joints to reduce her pain. Physical Therapy Plan Frequency and Duration Frequency of Treatment 2x/Week Duration of Treatment 10 weeks Plan of Care Start Date 08/31/21 Plan of Care End Date 11/09/21 Therapeutic Interventions Therapeutic Interventions Balance Training,Gait Training ,Home Exercise Program,Joint Mobilizations,Manual Therapy, Neuromuscular Re-education, Self-Care/Home Management, Therapeutic Activities, Therapeutic Exercises Modalities Cold Pack/Ice Massage,Electric Stimulation,Hot Packs Next Visit Focus/Plan Next Note Type Treatment Note Next Visit Plan Establish HEP: supine HEP for lumbar/hip mobility early in the morning. Consider stretching/manual for hip flexor. Gentle scapular stabilization (pt weakest in ER, most pain with horizontal adduction). Plan of Care Dates Plan of Care Start Date 08/31/21 Plan of Care End Date 11/09/21 Electronically Signed by: Ivory Ramirez, PT 09/01/21 [id number] If you are in agreement with this Plan of Care, please return a signed and dated copy. I have reviewed this Plan of Care and certify that the skilled therapy services above are required to meet the patient?s needs. Physician Signature Date Printed Name and Credentials Clinical Instructor Signature Printed Name and Credentials
--- NOTE | 2021-08-31 16:00 | PT.OIE ---
Current Diagnoses Other chronic pain (08/31/21) Low back pain, unspecified (08/31/21) Other shoulder lesions, right shoulder (08/31/21) Past Medical History (Last Updated 07/15/21 @ 11:31 by Elías Weldon MD) Anxiety (~2015) Cataracts, bilateral (~2018) Chicken pox (~194) Chronic back pain (~2020) Depression (~2009) Eczema (~2015) Essential hypertension Frequent UTI History of appendectomy (~1955) Hypertension Insomnia Measles (~1949) Mitral valve regurgitation Mumps (~1952) Osteoarthritis (~2011) Osteopenia PVC (premature ventricular contraction) Right rotator cuff tendonitis Rosacea (~1994) Scarlet fever (~1951) Skin cancer (~2006) Urinary retention Past Surgical History (Last Reviewed 07/15/21 @ 11:18 by Elías Weldon MD) Anesthesia History of appendectomy (~1955) Visit Care Team Role Provider Type Elías Weldon MD Attending Provider Physician Family Provider Primary Care Provider Referring Provider Specialty: Internal Medicine Address: [address] [place] [address] Email: [email or web address] Physical Therapy Initial Evaluation PT-OP-A Visit Information Start: 08/27/21 15:44 Freq: Status: Active Protocol: Document 08/31/21 14:30 AMB (Rec: 08/31/21 14:44 AMB [id number]) Out-Patient Physical Therapy Visit Information Visit Information Visit Type Initial Evaluation Visit Start Time 14:30 Visit Stop Time 15:15 Total Visit Minutes 45 Visit Number 1 PT-OP-B Current Condition Start: 08/27/21 15:44 Freq: Status: Active Protocol: Document 08/31/21 14:30 AMB (Rec: 08/31/21 14:44 AMB [id number]) Current Condition History of Current Condition Onset Date 2 months, 2 years Current Complaints R shoulder pain/ left back pain History of Current Condition Beatrice reports Left hip and back pain that started years ago, when she was expanding a garden bed, getting shoes on in the morning is stiff with lumbar flexion, generally feels better throughout the day. Some days aching, other days not as bad. Right shoulder pain after pruning the tree started 2 months ago. Moving the arm across the body, lifting the arm away from the body both increase pain. Hard to fall asleep due to the pain (sidesleeper). Bending forward is difficult due to stiffness and pain. Does live alone. Treatment Goals Patient/Caregiver Goals Reduce pain for improved lifting/yardwork/sleep Prior Functional Status Baseline Function- ADL's Independent Baseline Function- Mobility Independent Personal Factors Other Personal Factors That May Effect osteopenia Therapy/Recovery PT-OP-C Subjective Start: 08/27/21 15:44 Freq: Status: Active Protocol: Document 09/01/21 10:58 AMB (Rec: 09/01/21 11:11 AMB [id number]) Patient Questionnaires Oswestry Low Back Index Oswestry Score 22 Oswestry Impairment 20 to 39% Impaired (Score 20- 39) OP-PT Pain Assessment Comments Pain Comments R shoulder 6-7 with movement, ant hip 410, post hip 6-7/10 PT-OP-J Posture/Palpation/Skin Start: 08/27/21 15:44 Freq: Status: Active Protocol: Document 08/31/21 14:30 AMB (Rec: 09/01/21 11:11 AMB [id number]) Posture Evaluation Comments Posture Comments Winging medial border of scapula R>L. PT-OP-K Range of Motion Start: 08/27/21 15:44 Freq: Status: Active Protocol: Document 08/31/21 14:30 AMB (Rec: 09/01/21 11:11 AMB [id number]) Lumbar Spine Range of Motion Lumbar Spine Active Percentage Testing Position Standing Flexion 50 Extension 75 Lateral Flexion Left 25 Lateral Flexion Right 50 Shoulder Goniometric Range of Motion Shoulder Right Passive Testing Position Sitting Flexion 130 Comments pain with flexion and horizontal adduction, PT-OP-M Strength Start: 08/27/21 15:44 Freq: Status: Active Protocol: Document 08/31/21 14:30 AMB (Rec: 09/01/21 11:11 AMB [id number]) Shoulder Strength Shoulder Manual Muscle Testing Right Flexion 4 Good Abduction (C5) 4 Good External Rotation 3 Fair Internal Rotation 4+ Good+ Comments pain with resisted ER PT-OP-T Assessment and Plan Start: 08/27/21 15:44 Freq: Status: Active Protocol: Document 08/31/21 14:30 AMB (Rec: 08/31/21 16:24 AMB [id number]) Physical Therapy Assessment Rehab Potential Rehabilitation Potential Good Evaluation Complexity Number of Personal Factors/Comorbidities 1-2 Number of Body Systems Impaired 1-2 Clinical Presentation at Evaluation Stable Impairments Impairments Activity Tolerance,Functional Activities,Pain,Posture,ROM, Strength Goals Two Impairment Back Short Term Goal (STG) Beatrice will don her shoes and socks without back/hip pain. STG Duration 4 weeks Half-Way Goal (LTG) Beatrice will perform all bed mobility without back pain. LTG Duration 10 weeks One Impairment Shoulder Short Term Goal (STG) Beatrice will improve her passive shoulder flexion to at least 150 degrees. STG Duration 4 weeks Knitting Tester Goal (LTG) Beatrice will show improved shoulder strength by lifting a plate into her microwave without shoulder pain. LTG Duration 10 weeks Assessment Summary Assessment Beatrice attends physical therapy for recent onset right shoulder pain s/p pruning and more chronic left lumbar/hip pain for the past 2 years. The back pain is mostly limiting in the morning with stiffness, but does radiate into the front of the hip and she does have tenderness over iliopsoas, but has maintained her hip rotation ROM well. Her right shoulder was weak and painful worst with external rotation. She did have pain with end range motion with flexion and horizontal adduction. She will benefit from physical therapy for strengthening of her core musculature, scapular stabilizers, and mobility training of her lumbar, hip, and shoulder joints to reduce her pain. Physical Therapy Plan Frequency and Duration Frequency of Treatment 2x/Week Duration of Treatment 10 weeks Plan of Care Start Date 08/31/21 Plan of Care End Date 11/09/21 Therapeutic Interventions Therapeutic Interventions Home Exercise Program,Joint Mobilizations,Manual Therapy, Neuromuscular Re-education, Self-Care/Home Management, Therapeutic Activities, Therapeutic Exercises Next Visit Focus/Plan Next Note Type Treatment Note Next Visit Plan Establish HEP: supine HEP for lumbar/hip mobility early in the morning. Consider stretching/manual for hip flexor. Gentle scapular stabilization (pt weakest in ER, most pain with horizontal adduction).
--- NOTE | 2021-09-03 14:30 | PT.OTN ---
Current Diagnoses Other chronic pain (09/03/21) Low back pain, unspecified (09/03/21) Other shoulder lesions, right shoulder (09/03/21) Physical Therapy Treatment Note PT-OP-A Visit Information Start: 08/27/21 15:44 Freq: Status: Active Protocol: Document 09/03/21 13:45 SP (Rec: 09/03/21 14:35 SP [id number]) Out-Patient Physical Therapy Visit Information Visit Information Visit Type Treatment Note Visit Start Time 13:45 Visit Stop Time 14:30 Total Visit Minutes 45 Visit Number 2 Number of PROCUREMENT ACCOUNTANT Visits 1 PT-OP-B Current Condition Start: 08/27/21 15:44 Freq: Status: Active Protocol: Document 08/31/21 14:30 AMB (Rec: 08/31/21 14:44 AMB [id number]) Current Condition History of Current Condition Onset Date 2 months, 2 years Current Complaints R shoulder pain/ left back pain History of Current Condition Beatrice reports Left hip and back pain that started years ago, when she was expanding a garden bed, getting shoes on in the morning is stiff with lumbar flexion, generally feels better throughout the day. Some days aching, other days not as bad. Right shoulder pain after pruning the tree started 2 months ago. Moving the arm across the body, lifting the arm away from the body both increase pain. Hard to fall asleep due to the pain (sidesleeper). Bending forward is difficult due to stiffness and pain. Does live alone. Treatment Goals Patient/Caregiver Goals Reduce pain for improved lifting/yardwork/sleep Prior Functional Status Baseline Function- ADL's Independent Baseline Function- Mobility Independent Personal Factors Other Personal Factors That May Effect osteopenia Therapy/Recovery PT-OP-C Subjective Start: 08/27/21 15:44 Freq: Status: Active Protocol: Document 09/03/21 13:45 SP (Rec: 09/03/21 14:35 SP [id number]) OP-PT Subjective Patient Comments Patient Comments Pt reported little sore after last tx but went away. PT-OP-J Posture/Palpation/Skin Start: 08/27/21 15:44 Freq: Status: Active Protocol: Document 08/31/21 14:30 AMB (Rec: 09/01/21 11:11 AMB [id number]) Posture Evaluation Comments Posture Comments Winging medial border of scapula R>L. PT-OP-K Range of Motion Start: 08/27/21 15:44 Freq: Status: Active Protocol: Document 08/31/21 14:30 AMB (Rec: 09/01/21 11:11 AMB [id number]) Lumbar Spine Range of Motion Lumbar Spine Active Percentage Testing Position Standing Flexion 50 Extension 75 Lateral Flexion Left 25 Lateral Flexion Right 50 Shoulder Goniometric Range of Motion Shoulder Right Passive Testing Position Sitting Flexion 130 Comments pain with flexion and horizontal adduction, PT-OP-M Strength Start: 08/27/21 15:44 Freq: Status: Active Protocol: Document 08/31/21 14:30 AMB (Rec: 09/01/21 11:11 AMB [id number]) Shoulder Strength Shoulder Manual Muscle Testing Right Flexion 4 Good Abduction (C5) 4 Good External Rotation 3 Fair Internal Rotation 4+ Good+ Comments pain with resisted ER PT-OP-Q Treatments Start: 08/27/21 15:44 Freq: Status: Active Protocol: Document 09/03/21 13:45 SP (Rec: 09/03/21 14:35 SP [id number]) Therapeutic Exercises Supine Exercises BUE FF Supine Exercise Name added to HEP: better hands clasped vs dowel LUE help RUE (pain) Side right Resistance AAROM Equipment Used clasp hands together better Reps/Minutes 2x5 reps Comments cued painfree ROM LTR Supine Exercise Name added to HEP Side bilateral Resistance slow ROM Reps/Minutes hold 3 sec x5 Comments good form and stretch lat hip and QL SKTC Supine Exercise Name added toHEP Side bilateral Resistance LUE hold LE bent Reps/Minutes 30 x2 Comments good form and stretch TA, pelvic tilt Supine Exercise Name added to HEP Reps/Minutes 5 sec x10 Comments cued neutral pelvis Sidelying Exercises R shld ER Sidelying Exercise Name assesed- stopped due to clicking in R GH Jt Side right Equipment Used towel roll under arm Reps/Minutes x5 Comments discomfort so stopped- hold for now R Shld ABD Sidelying Exercise Name added to HEP Side right Resistance AROM Reps/Minutes 2x5 reps Comments painfree ROM Sitting Exercises scap retraction Sitting Exercise Name added to HEP- good response Resistance AROM Reps/Minutes 5sec x10 Comments cued tall posture, head rotate to R center B Shld ER Sitting Exercise Name Discussed end tx, performed painfree but reported little click in elbow Side bilateral Resistance AROM Reps/Minutes x5- revisit next tx. Comments cued posture, neutral head/CS- didn't give for HEP due to click in R elbow Manual Therapy Treatment Soft Tissue Mobilization STMs Body Location R UT, LS, distal pec, prox bicep, ant/midd deltoid Mobilization Type Myofascial Release,Strumming Intensity/Depth Superficial Body Position Hooklying Comments manual, sensitive to pressure, good feedback tolerance. Joint Mobilizations R GH Jt Direction inf, posterior Grade II Body Position Hooklying Comments manual gentle ROM- painfree Manual Techniques PROM R shld Type FF, ABD with elbow 90 deg Body Position Hooklying Comments pt reported discomfort over proximal bicep ABD> 90deg ecc> concentric, FF 25deg-90deg ecc> concentric Self-Care/Home Management Treatment Education Patient Education Body Mechanics,Joint Protection,Pain Management, Posture Other Education Education on use pillows side sleeping: between B knees, folded towel/small pillow under lateral ribcage, under arm and front trunk. Added HEP see ther ex today, scanned in. PT-OP-T Assessment and Plan Start: 08/27/21 15:44 Freq: Status: Active Protocol: Document 09/03/21 13:45 SP (Rec: 09/03/21 14:35 SP [id number]) Physical Therapy Assessment Goals Two Impairment Back Short Term Goal (STG) Beatrice will don her shoes and socks without back/hip pain. STG Duration 4 weeks Couture Alterations Dressmaker Goal (LTG) Beatrice will perform all bed mobility without back pain. LTG Duration 10 weeks One Impairment Shoulder Short Term Goal (STG) Beatrice will improve her passive shoulder flexion to at least 150 degrees. STG Duration 4 weeks Couture Alterations Dressmaker Goal (LTG) Beatrice will show improved shoulder strength by lifting a plate into her microwave without shoulder pain. LTG Duration 10 weeks Assessment Summary Assessment Pt responded well to initiated TA/LTR and SKTC then light manual and HEP initiated AAROM using LUE, selected painfree ROM ther ex. PRovided HOs, cued for postural and CS alignment and slow pain free ROM with good feedback. Pt no adverse affects to tx. Physical Therapy Plan Frequency and Duration Frequency of Treatment 2x/Week Duration of Treatment 10 weeks Plan of Care Start Date 08/31/21 Plan of Care End Date 11/09/21 Therapeutic Interventions Therapeutic Interventions Balance Training,Gait Training ,Home Exercise Program,Joint Mobilizations,Manual Therapy, Neuromuscular Re-education, Self-Care/Home Management, Therapeutic Activities, Therapeutic Exercises Modalities Cold Pack/Ice Massage,Electric Stimulation,Hot Packs Next Visit Focus/Plan Next Note Type Treatment Note Next Visit Plan recheck HEP: supine HEP for lumbar/hip mobility and AAROM RUE early in the morning. Next tx: Consider stretching/ manual for hip flexor. Gentle scapular stabilization (pt weakest in ER, most pain with horizontal adduction).
--- NOTE | 2021-09-07 15:40 | PT.OTN ---
Current Diagnoses Other chronic pain (09/07/21) Low back pain, unspecified (09/07/21) Other shoulder lesions, right shoulder (09/07/21) Physical Therapy Treatment Note PT-OP-A Visit Information Start: 08/27/21 15:44 Freq: Status: Active Protocol: Document 09/07/21 14:33 AMB (Rec: 09/07/21 15:37 AMB [id number]) Out-Patient Physical Therapy Visit Information Visit Information Visit Type Treatment Note Visit Start Time 14:30 Visit Stop Time 15:15 Total Visit Minutes 45 Visit Number 3 PT-OP-B Current Condition Start: 08/27/21 15:44 Freq: Status: Active Protocol: Document 08/31/21 14:30 AMB (Rec: 08/31/21 14:44 AMB [id number]) Current Condition History of Current Condition Onset Date 2 months, 2 years Current Complaints R shoulder pain/ left back pain History of Current Condition Beatrice reports Left hip and back pain that started years ago, when she was expanding a garden bed, getting shoes on in the morning is stiff with lumbar flexion, generally feels better throughout the day. Some days aching, other days not as bad. Right shoulder pain after pruning the tree started 2 months ago. Moving the arm across the body, lifting the arm away from the body both increase pain. Hard to fall asleep due to the pain (sidesleeper). Bending forward is difficult due to stiffness and pain. Does live alone. Treatment Goals Patient/Caregiver Goals Reduce pain for improved lifting/yardwork/sleep Prior Functional Status Baseline Function- ADL's Independent Baseline Function- Mobility Independent Personal Factors Other Personal Factors That May Effect osteopenia Therapy/Recovery PT-OP-C Subjective Start: 08/27/21 15:44 Freq: Status: Active Protocol: Document 09/07/21 14:33 AMB (Rec: 09/07/21 15:37 AMB [id number]) OP-PT Subjective Patient Comments Patient Comments FElt better after .ast treatment, but increased pain after leaving the grocery store with lifting a heavy bag of groceries. PT-OP-J Posture/Palpation/Skin Start: 08/27/21 15:44 Freq: Status: Active Protocol: Document 08/31/21 14:30 AMB (Rec: 09/01/21 11:11 AMB [id number]) Posture Evaluation Comments Posture Comments Winging medial border of scapula R>L. PT-OP-K Range of Motion Start: 08/27/21 15:44 Freq: Status: Active Protocol: Document 08/31/21 14:30 AMB (Rec: 09/01/21 11:11 AMB [id number]) Lumbar Spine Range of Motion Lumbar Spine Active Percentage Testing Position Standing Flexion 50 Extension 75 Lateral Flexion Left 25 Lateral Flexion Right 50 Shoulder Goniometric Range of Motion Shoulder Right Passive Testing Position Sitting Flexion 130 Comments pain with flexion and horizontal adduction, PT-OP-M Strength Start: 08/27/21 15:44 Freq: Status: Active Protocol: Document 08/31/21 14:30 AMB (Rec: 09/01/21 11:11 AMB [id number]) Shoulder Strength Shoulder Manual Muscle Testing Right Flexion 4 Good Abduction (C5) 4 Good External Rotation 3 Fair Internal Rotation 4+ Good+ Comments pain with resisted ER PT-OP-Q Treatments Start: 08/27/21 15:44 Freq: Status: Active Protocol: Document 09/07/21 14:33 AMB (Rec: 09/07/21 15:37 AMB [id number]) Therapeutic Exercises Supine Exercises piriformis stretch Reps/Minutes 30x2 Comments HEP shoulder protract Reps/Minutes 10 Comments AROM BUE FF Supine Exercise Name added to HEP: better hands clasped vs dowel LUE help RUE (pain) Side right Resistance AAROM Equipment Used clasp hands together better Reps/Minutes 2x5 reps Comments cued painfree ROM LTR Supine Exercise Name added to HEP Side bilateral Resistance slow ROM Reps/Minutes hold 3 sec x5 Comments good form and stretch lat hip and QL SKTC Supine Exercise Name added toHEP Side bilateral Resistance LUE hold LE bent Reps/Minutes 30 x2 Comments good form and stretch TA, pelvic tilt Supine Exercise Name added to HEP Reps/Minutes 5 sec x10 Comments cued neutral pelvis Sidelying Exercises QL stretch Reps/Minutes 30x2 Comments cues for setup open book Reps/Minutes 10 Comments cues for form Manual Therapy Treatment Soft Tissue Mobilization STMs Body Location L QL, L hip flexor Mobilization Type Myofascial Release,Strumming Intensity/Depth Superficial Body Position Hooklying PT-OP-T Assessment and Plan Start: 08/27/21 15:44 Freq: Status: Active Protocol: Document 09/07/21 14:33 AMB (Rec: 09/07/21 15:37 [facility] [id number]) Physical Therapy Assessment Goals Two Impairment Back Short Term Goal (STG) Beatrice will don her shoes and socks without back/hip pain. STG Duration 4 weeks Dimpling Machine Operator Goal (LTG) Beatrice will perform all bed mobility without back pain. LTG Duration 10 weeks One Impairment Shoulder Short Term Goal (STG) Beatrice will improve her passive shoulder flexion to at least 150 degrees. STG Duration 4 weeks Intermediate Goal (LTG) Beatrice will show improved shoulder strength by lifting a plate into her microwave without shoulder pain. LTG Duration 10 weeks Assessment Summary Assessment Beatrice's shoulder is doing better, but was flared up after lifting a heavy grocery bag. Overall doing well with HEP, but kneeling kushal pose was d/brendan due to pt worried about R kne with history of patellar dislocation. Physical Therapy Plan Next Visit Focus/Plan Next Note Type Treatment Note Next Visit Plan Check HEP progression, progress hip mobility and scapular stability
--- NOTE | 2021-09-10 15:13 | PT.OTN ---
Current Diagnoses Other chronic pain (09/10/21) Low back pain, unspecified (09/10/21) Other shoulder lesions, right shoulder (09/10/21) Physical Therapy Treatment Note PT-OP-A Visit Information Start: 08/27/21 15:44 Freq: Status: Active Protocol: Document 09/10/21 14:35 SP (Rec: 09/10/21 15:13 SP [id number]) Out-Patient Physical Therapy Visit Information Visit Information Visit Type Treatment Note Visit Start Time 14:35 Visit Stop Time 15:13 Total Visit Minutes 38 Visit Number 4 Number of VENDOR MANAGER Visits 1 PT-OP-B Current Condition Start: 08/27/21 15:44 Freq: Status: Active Protocol: Document 08/31/21 14:30 AMB (Rec: 08/31/21 14:44 AMB [id number]) Current Condition History of Current Condition Onset Date 2 months, 2 years Current Complaints R shoulder pain/ left back pain History of Current Condition Beatrice reports Left hip and back pain that started years ago, when she was expanding a garden bed, getting shoes on in the morning is stiff with lumbar flexion, generally feels better throughout the day. Some days aching, other days not as bad. Right shoulder pain after pruning the tree started 2 months ago. Moving the arm across the body, lifting the arm away from the body both increase pain. Hard to fall asleep due to the pain (sidesleeper). Bending forward is difficult due to stiffness and pain. Does live alone. Treatment Goals Patient/Caregiver Goals Reduce pain for improved lifting/yardwork/sleep Prior Functional Status Baseline Function- ADL's Independent Baseline Function- Mobility Independent Personal Factors Other Personal Factors That May Effect osteopenia Therapy/Recovery PT-OP-C Subjective Start: 08/27/21 15:44 Freq: Status: Active Protocol: Document 09/10/21 14:35 SP (Rec: 09/10/21 15:13 SP [id number]) OP-PT Subjective Patient Comments Patient Comments Pt stated R arm not as painful but LB was in pain since last tx but got better. PT-OP-J Posture/Palpation/Skin Start: 08/27/21 15:44 Freq: Status: Active Protocol: Document 08/31/21 14:30 AMB (Rec: 09/01/21 11:11 AMB [id number]) Posture Evaluation Comments Posture Comments Winging medial border of scapula R>L. PT-OP-K Range of Motion Start: 08/27/21 15:44 Freq: Status: Active Protocol: Document 08/31/21 14:30 AMB (Rec: 09/01/21 11:11 AMB [id number]) Lumbar Spine Range of Motion Lumbar Spine Active Percentage Testing Position Standing Flexion 50 Extension 75 Lateral Flexion Left 25 Lateral Flexion Right 50 Shoulder Goniometric Range of Motion Shoulder Right Passive Testing Position Sitting Flexion 130 Comments pain with flexion and horizontal adduction, PT-OP-M Strength Start: 08/27/21 15:44 Freq: Status: Active Protocol: Document 08/31/21 14:30 AMB (Rec: 09/01/21 11:11 AMB [id number]) Shoulder Strength Shoulder Manual Muscle Testing Right Flexion 4 Good Abduction (C5) 4 Good External Rotation 3 Fair Internal Rotation 4+ Good+ Comments pain with resisted ER PT-OP-Q Treatments Start: 08/27/21 15:44 Freq: Status: Active Protocol: Document 09/10/21 14:35 SP (Rec: 09/10/21 15:13 SP [id number]) Therapeutic Exercises Supine Exercises HABD Supine Exercise Name added to HEP- cued slow Side right Resistance AROM Reps/Minutes x10 Comments cued slow- painfree ROM piriformis stretch Supine Exercise Name HEP reviewed Side bilateral Resistance R>L needed Equipment Used UE support for BLE lifted off table Reps/Minutes 30x3 Comments good form, states glut little tight but relaxes with time BUE FF Supine Exercise Name reviewed HEP- able to perform RUE FF self Side right Resistance AAROM Equipment Used clasp hands together better Reps/Minutes x10 Comments cued painfree ROM LTR Supine Exercise Name reviewed HEP Side bilateral Resistance slow ROM Reps/Minutes hold 3 sec x5 Comments good form and stretch lat hip and QL SKTC Supine Exercise Name reviewed HEP Side bilateral Resistance LUE hold LE bent Reps/Minutes 30 x2 Comments good form and stretch TA, pelvic tilt Supine Exercise Name reviewed HEP- added march Reps/Minutes 5 sec x10 Comments cued neutral pelvis Sidelying Exercises QL stretch Sidelying Exercise Name reviewed HEP open book Sidelying Exercise Name HEP review- like reachingfor drivers seat belt then reaching in back seat Side right Reps/Minutes 2x5 reps Comments cued head turn with hand- allow TS rotation R Shld ABD Sidelying Exercise Name added to HEP Side right Resistance AROM Reps/Minutes 2x5 reps Comments painfree ROM Sitting Exercises scap retraction Sitting Exercise Name added to HEP- good response Resistance AROM Reps/Minutes 5sec x10 Comments cued tall posture, head rotate to R center B Shld ER Sitting Exercise Name added to HEP Side bilateral Resistance AROM >TB #1 Reps/Minutes 2x5 Comments cued posture, neutral head/CS- didn't give for HEP due to click in R elbow Standing Exercises rows Standing Exercise Name added to HEP Side bilateral Resistance TB #1 Reps/Minutes 2x10 Comments cued no LB arch PT-OP-T Assessment and Plan Start: 08/27/21 15:44 Freq: Status: Active Protocol: Document 09/10/21 14:35 SP (Rec: 09/10/21 15:13 SP [id number]) Physical Therapy Assessment Goals Two Impairment Back Short Term Goal (STG) Beatrice will don her shoes and socks without back/hip pain. STG Duration 4 weeks Prototype Sewer Goal (LTG) Beatrice will perform all bed mobility without back pain. LTG Duration 10 weeks One Impairment Shoulder Short Term Goal (STG) Beatrice will improve her passive shoulder flexion to at least 150 degrees. STG Duration 4 weeks Fpc Goal (LTG) Beatrice will show improved shoulder strength by lifting a plate into her microwave without shoulder pain. LTG Duration 10 weeks Assessment Summary Assessment Pt responded well to ROM and core HEP review. She was ableto tolerate ROM against gravity supine and sidlying without R shld clicking today, also tolerated added resistance to shld ER and rows added today without adverse affects. Physical Therapy Plan Frequency and Duration Frequency of Treatment 2x/Week Duration of Treatment 10 weeks Plan of Care Start Date 08/31/21 Plan of Care End Date 11/09/21 Therapeutic Interventions Therapeutic Interventions Balance Training,Gait Training ,Home Exercise Program,Joint Mobilizations,Manual Therapy, Neuromuscular Re-education, Self-Care/Home Management, Therapeutic Activities, Therapeutic Exercises Modalities Cold Pack/Ice Massage,Electric Stimulation,Hot Packs Next Visit Focus/Plan Next Note Type Treatment Note Next Visit Plan Check HEP progression, progress hip mobility and scapular stability
--- NOTE | 2021-09-17 15:30 | PT.OTN ---
Current Diagnoses Other chronic pain (09/17/21) Low back pain, unspecified (09/17/21) Other shoulder lesions, right shoulder (09/17/21) Physical Therapy Treatment Note PT-OP-A Visit Information Start: 08/27/21 15:44 Freq: Status: Active Protocol: Document 09/17/21 14:35 SP (Rec: 09/17/21 15:41 SP [id number]) Out-Patient Physical Therapy Visit Information Visit Information Visit Type Treatment Note Visit Start Time 14:35 Visit Stop Time 15:30 Total Visit Minutes 55 Visit Number 5 Number of ORTHOPEDIC MECHANIC Visits 2 PT-OP-B Current Condition Start: 08/27/21 15:44 Freq: Status: Active Protocol: Document 08/31/21 14:30 AMB (Rec: 08/31/21 14:44 AMB [id number]) Current Condition History of Current Condition Onset Date 2 months, 2 years Current Complaints R shoulder pain/ left back pain History of Current Condition Beatrice reports Left hip and back pain that started years ago, when she was expanding a garden bed, getting shoes on in the morning is stiff with lumbar flexion, generally feels better throughout the day. Some days aching, other days not as bad. Right shoulder pain after pruning the tree started 2 months ago. Moving the arm across the body, lifting the arm away from the body both increase pain. Hard to fall asleep due to the pain (sidesleeper). Bending forward is difficult due to stiffness and pain. Does live alone. Treatment Goals Patient/Caregiver Goals Reduce pain for improved lifting/yardwork/sleep Prior Functional Status Baseline Function- ADL's Independent Baseline Function- Mobility Independent Personal Factors Other Personal Factors That May Effect osteopenia Therapy/Recovery PT-OP-C Subjective Start: 08/27/21 15:44 Freq: Status: Active Protocol: Document 09/17/21 14:35 SP (Rec: 09/17/21 15:41 SP [id number]) OP-PT Subjective Patient Comments Patient Comments Pt reports wants to review some HEP, has been doing all 2x/day and wonder if needed, tired. PT-OP-J Posture/Palpation/Skin Start: 08/27/21 15:44 Freq: Status: Active Protocol: Document 08/31/21 14:30 AMB (Rec: 09/01/21 11:11 AMB [id number]) Posture Evaluation Comments Posture Comments Winging medial border of scapula R>L. PT-OP-K Range of Motion Start: 08/27/21 15:44 Freq: Status: Active Protocol: Document 09/17/21 14:35 SP (Rec: 09/17/21 15:41 SP [id number]) Shoulder Goniometric Range of Motion Shoulder Right Passive Testing Position Sitting Flexion 142 Abduction 140 External Rotation at 0 degrees Abduction 75 Internal Rotation Behind Back (text) T9 Comments Taken AROM RUE little discomfort gained: 12 deg FF PT-OP-M Strength Start: 08/27/21 15:44 Freq: Status: Active Protocol: Document 08/31/21 14:30 AMB (Rec: 09/01/21 11:11 AMB [id number]) Shoulder Strength Shoulder Manual Muscle Testing Right Flexion 4 Good Abduction (C5) 4 Good External Rotation 3 Fair Internal Rotation 4+ Good+ Comments pain with resisted ER PT-OP-Q Treatments Start: 08/27/21 15:44 Freq: Status: Active Protocol: Document 09/17/21 14:35 SP (Rec: 09/17/21 15:41 SP [id number]) Therapeutic Exercises Supine Exercises core may Supine Exercise Name added to HEP- sequencial R lift hold, L lift, R lower, L lower Side bilateral Reps/Minutes 2x5 reps lead each LE Comments cued maintain 90deg knee flexion HABD Supine Exercise Name reviewed HEP Side right Resistance AROM Reps/Minutes x10 Comments cued slow- painfree ROM piriformis stretch Supine Exercise Name HEP reviewed Side bilateral Resistance R>L needed Equipment Used UE support for BLE lifted off table Reps/Minutes 30x3 Comments good form, states glut little tight but relaxes with time BUE FF Supine Exercise Name reviewed HEP Side right Resistance AROM Equipment Used Initial LUE support RUE, then AROM [place] Reps/Minutes x10 Comments cued painfree ROM LTR Supine Exercise Name reviewed HEP Side bilateral Resistance slow ROM Reps/Minutes hold 3 sec x5 Comments good form and stretch lat hip and QL SKTC Supine Exercise Name reviewed HEP Side bilateral Resistance LUE hold LE bent Reps/Minutes 30 x2 Comments good form and stretch, states get more stretch as time holding TA, pelvic tilt Supine Exercise Name DC able perform, progressed to core may Reps/Minutes 5 sec x10 Comments cued neutral pelvis Sidelying Exercises QL stretch Sidelying Exercise Name reviewed HEP: seated side bend Side left Reps/Minutes 30 Comments good feedback open book Sidelying Exercise Name HEP review- like reachingfor drivers seat belt then reaching in back seat Side bilateral Resistance R>L Reps/Minutes 2x5 reps Comments good head with arm, painfree R shld ER Sidelying Exercise Name only to neutral straight front <>belly Side right Equipment Used towel roll under arm Reps/Minutes x10 Comments good form, no pain/or clicking today can continue home R Shld ABD Sidelying Exercise Name reviewed HEP- wrist neutral palm forward Side right Resistance AROM Reps/Minutes 2x5 reps Comments painfree Sitting Exercises QL stretch Sitting Exercise Name R SB, LUE OH Side left Reps/Minutes 30 x2 Comments good feedback stretch scap retraction Sitting Exercise Name discontinue- incorporating with shld ext now Resistance AROM Reps/Minutes 5sec x10 Comments cued tall posture, head rotate to R center B Shld ER Sitting Exercise Name having pain against resistance so Dc band for now Side bilateral Resistance TB #1>AROM Reps/Minutes 2x5 Comments cued posture, neutral head/CS- didn't give for HEP due to click in R elbow Standing Exercises shld ext Standing Exercise Name added to HEP Side bilateral Resistance TB #1 Reps/Minutes x10 Comments good form rows Standing Exercise Name reviewed HEP Side bilateral Resistance TB #1>#3 Reps/Minutes 2x10 Comments cued no LB arch PT-OP-T Assessment and Plan Start: 08/27/21 15:44 Freq: Status: Active Protocol: Document 09/17/21 14:35 SP (Rec: 09/17/21 15:41 SP [id number]) Physical Therapy Assessment Goals Two Impairment Back Short Term Goal (STG) Beatrice will don her shoes and socks without back/hip pain. STG Duration 4 weeks Driller Operator Goal (LTG) Beatrice will perform all bed mobility without back pain. LTG Duration 10 weeks One Impairment Shoulder Short Term Goal (STG) Beatrice will improve her passive shoulder flexion to at least 150 degrees. STG Duration 4 weeks Driller Operator Goal (LTG) Beatrice will show improved shoulder strength by lifting a plate into her microwave without shoulder pain. LTG Duration 10 weeks Assessment Summary Assessment Extra time spent answering questions and assessing proper form with current and progressing HEP. Pt improving in RUE gained 12 deg FF and only needing initiate lift with support LUE then can perform AROM. Initiated core may and shld ext for core faciltation and scap stability with no adverse affects. Physical Therapy Plan Frequency and Duration Frequency of Treatment 2x/Week Duration of Treatment 10 weeks Plan of Care Start Date 08/31/21 Plan of Care End Date 11/09/21 Therapeutic Interventions Therapeutic Interventions Balance Training,Gait Training ,Home Exercise Program,Joint Mobilizations,Manual Therapy, Neuromuscular Re-education, Self-Care/Home Management, Therapeutic Activities, Therapeutic Exercises Modalities Cold Pack/Ice Massage,Electric Stimulation,Hot Packs Next Visit Focus/Plan Next Note Type Treatment Note Next Visit Plan Check HEP progression. POC: progress hip mobility and scapular stability
--- NOTE | 2021-09-22 15:44 | PT.OTN ---
Current Diagnoses Other chronic pain (09/22/21) Low back pain, unspecified (09/22/21) Other shoulder lesions, right shoulder (09/22/21) Physical Therapy Treatment Note PT-OP-A Visit Information Start: 08/27/21 15:44 Freq: Status: Active Protocol: Document 09/22/21 14:30 AMB (Rec: 09/22/21 15:44 AMB [id number]) Out-Patient Physical Therapy Visit Information Visit Information Visit Type Treatment Note Visit Start Time 14:35 Visit Stop Time 15:30 Total Visit Minutes 40 Visit Number 6 PT-OP-B Current Condition Start: 08/27/21 15:44 Freq: Status: Active Protocol: Document 08/31/21 14:30 AMB (Rec: 08/31/21 14:44 AMB [id number]) Current Condition History of Current Condition Onset Date 2 months, 2 years Current Complaints R shoulder pain/ left back pain History of Current Condition Beatrice reports Left hip and back pain that started years ago, when she was expanding a garden bed, getting shoes on in the morning is stiff with lumbar flexion, generally feels better throughout the day. Some days aching, other days not as bad. Right shoulder pain after pruning the tree started 2 months ago. Moving the arm across the body, lifting the arm away from the body both increase pain. Hard to fall asleep due to the pain (sidesleeper). Bending forward is difficult due to stiffness and pain. Does live alone. Treatment Goals Patient/Caregiver Goals Reduce pain for improved lifting/yardwork/sleep Prior Functional Status Baseline Function- ADL's Independent Baseline Function- Mobility Independent Personal Factors Other Personal Factors That May Effect osteopenia Therapy/Recovery PT-OP-C Subjective Start: 08/27/21 15:44 Freq: Status: Active Protocol: Document 09/22/21 14:30 AMB (Rec: 09/22/21 15:44 AMB [id number]) OP-PT Subjective Patient Comments Patient Comments Has been doing yardwork and that has actually been ok. Can feel it when does external rotation still. PT-OP-J Posture/Palpation/Skin Start: 08/27/21 15:44 Freq: Status: Active Protocol: Document 08/31/21 14:30 AMB (Rec: 09/01/21 11:11 AMB [id number]) Posture Evaluation Comments Posture Comments Winging medial border of scapula R>L. PT-OP-K Range of Motion Start: 08/27/21 15:44 Freq: Status: Active Protocol: Document 09/17/21 14:35 SP (Rec: 09/17/21 15:41 SP [id number]) Shoulder Goniometric Range of Motion Shoulder Right Passive Testing Position Sitting Flexion 142 Abduction 140 External Rotation at 0 degrees Abduction 75 Internal Rotation Behind Back (text) T9 Comments Taken AROM RUE little discomfort gained: 12 deg FF PT-OP-M Strength Start: 08/27/21 15:44 Freq: Status: Active Protocol: Document 08/31/21 14:30 AMB (Rec: 09/01/21 11:11 AMB [id number]) Shoulder Strength Shoulder Manual Muscle Testing Right Flexion 4 Good Abduction (C5) 4 Good External Rotation 3 Fair Internal Rotation 4+ Good+ Comments pain with resisted ER PT-OP-Q Treatments Start: 08/27/21 15:44 Freq: Status: Active Protocol: Document 09/22/21 14:30 AMB (Rec: 09/22/21 15:44 AMB [id number]) Therapeutic Exercises Supine Exercises piriformis stretch Supine Exercise Name HEP reviewed Side bilateral Resistance R>L needed Equipment Used UE support for BLE lifted off table Reps/Minutes 30x3 Comments good form, states glut little tight but relaxes with time LTR Supine Exercise Name reviewed HEP Side bilateral Resistance slow ROM Reps/Minutes hold 3 sec x5 Comments good form and stretch lat hip and QL SKTC Supine Exercise Name reviewed HEP Side bilateral Resistance LUE hold LE bent Reps/Minutes 30 x2 Comments good form and stretch, states get more stretch as time holding Sidelying Exercises R shld ER Sidelying Exercise Name only to neutral straight front <>belly Side right Equipment Used towel roll under arm Reps/Minutes x10 Comments good form, no pain/or clicking today can continue home Sitting Exercises B Shld ER Sitting Exercise Name instructed to neutral Side bilateral Resistance AROM only Reps/Minutes 2x5 Comments cued posture, neutral head/CS- didn't give for HEP due to click in R elbow Manual Therapy Treatment Soft Tissue Mobilization STMs Body Location R deltoid/pec, biceps Mobilization Type Myofascial Release,Strumming Intensity/Depth Superficial Body Position Hooklying Joint Mobilizations R GH Jt Direction inf, posterior Grade II Body Position Hooklying Comments manual gentle ROM- painfree PT-OP-T Assessment and Plan Start: 08/27/21 15:44 Freq: Status: Active Protocol: Document 09/22/21 14:30 AMB (Rec: 09/22/21 15:44 AMB [id number]) Physical Therapy Assessment Goals Two Impairment Back Short Term Goal (STG) Beatrice will don her shoes and socks without back/hip pain. STG Duration 4 weeks Insurance Verification Representative Goal (LTG) Beatrice will perform all bed mobility without back pain. LTG Duration 10 weeks One Impairment Shoulder Short Term Goal (STG) Beatrice will improve her passive shoulder flexion to at least 150 degrees. STG Duration 4 weeks Fdc Goal (LTG) Beatrice will show improved shoulder strength by lifting a plate into her microwave without shoulder pain. LTG Duration 10 weeks Assessment Summary Assessment Pt is doing well with HEP, did not add today as pt has many exercises and is doing them well. Did encourage her to keep yardwork to shoulder height or lower. Physical Therapy Plan Next Visit Focus/Plan Next Note Type Treatment Note Next Visit Plan Check HEP progression. POC: progress hip mobility and scapular stability
--- NOTE | 2021-10-05 20:23 | PT.OTN ---
Current Diagnoses Other chronic pain (10/05/21) Low back pain, unspecified (10/05/21) Other shoulder lesions, right shoulder (10/05/21) Physical Therapy Treatment Note PT-OP-A Visit Information Start: 08/27/21 15:44 Freq: Status: Active Protocol: Document 10/05/21 14:30 AMB (Rec: 10/06/21 07:31 AMB [id number]) Out-Patient Physical Therapy Visit Information Visit Information Visit Type Treatment Note Visit Start Time 14:30 Visit Stop Time 15:15 Total Visit Minutes 40 Visit Number 7 PT-OP-B Current Condition Start: 08/27/21 15:44 Freq: Status: Active Protocol: Document 08/31/21 14:30 AMB (Rec: 08/31/21 14:44 AMB [id number]) Current Condition History of Current Condition Onset Date 2 months, 2 years Current Complaints R shoulder pain/ left back pain History of Current Condition Beatrice reports Left hip and back pain that started years ago, when she was expanding a garden bed, getting shoes on in the morning is stiff with lumbar flexion, generally feels better throughout the day. Some days aching, other days not as bad. Right shoulder pain after pruning the tree started 2 months ago. Moving the arm across the body, lifting the arm away from the body both increase pain. Hard to fall asleep due to the pain (sidesleeper). Bending forward is difficult due to stiffness and pain. Does live alone. Treatment Goals Patient/Caregiver Goals Reduce pain for improved lifting/yardwork/sleep Prior Functional Status Baseline Function- ADL's Independent Baseline Function- Mobility Independent Personal Factors Other Personal Factors That May Effect osteopenia Therapy/Recovery PT-OP-C Subjective Start: 08/27/21 15:44 Freq: Status: Active Protocol: Document 10/05/21 14:30 AMB (Rec: 10/06/21 07:31 AMB [id number]) OP-PT Subjective Patient Comments Patient Comments Pt had a little flare up, with a near fall in her laundry room, put her arm out and that seemed to flare up the shoulder. Had another all when outside and slipping on some apples that were on the ground under her tree. PT-OP-J Posture/Palpation/Skin Start: 08/27/21 15:44 Freq: Status: Active Protocol: Document 08/31/21 14:30 AMB (Rec: 09/01/21 11:11 AMB [id number]) Posture Evaluation Comments Posture Comments Winging medial border of scapula R>L. PT-OP-K Range of Motion Start: 08/27/21 15:44 Freq: Status: Active Protocol: Document 09/17/21 14:35 SP (Rec: 09/17/21 15:41 SP [id number]) Shoulder Goniometric Range of Motion Shoulder Right Passive Testing Position Sitting Flexion 142 Abduction 140 External Rotation at 0 degrees Abduction 75 Internal Rotation Behind Back (text) T9 Comments Taken AROM RUE little discomfort gained: 12 deg FF PT-OP-M Strength Start: 08/27/21 15:44 Freq: Status: Active Protocol: Document 08/31/21 14:30 AMB (Rec: 09/01/21 11:11 AMB [id number]) Shoulder Strength Shoulder Manual Muscle Testing Right Flexion 4 Good Abduction (C5) 4 Good External Rotation 3 Fair Internal Rotation 4+ Good+ Comments pain with resisted ER PT-OP-Q Treatments Start: 08/27/21 15:44 Freq: Status: Active Protocol: Document 10/05/21 14:30 AMB (Rec: 10/06/21 20:21 AMB [id number]) Therapeutic Exercises Supine Exercises BUE FF Supine Exercise Name reviewed HEP Side right Resistance AROM Equipment Used Initial LUE support RUE, then AROM OH Reps/Minutes x10 Comments cued painfree ROM Sidelying Exercises R shld ER Sidelying Exercise Name only to neutral straight front <>belly Side right Equipment Used towel roll under arm Reps/Minutes x10 Comments good form, no pain/or clicking today can continue home R Shld ABD Sidelying Exercise Name reviewed HEP- wrist neutral palm forward Side right Resistance AROM Reps/Minutes 2x5 reps Comments painfree Standing Exercises shld ext Standing Exercise Name added to HEP Side bilateral Resistance TB #1 Reps/Minutes x10 Comments good form Manual Therapy Treatment Soft Tissue Mobilization STMs Body Location R deltoid/pec, biceps Mobilization Type Myofascial Release,Strumming Intensity/Depth Superficial Body Position Hooklying Joint Mobilizations R GH Jt Direction inf, posterior Grade II Body Position Hooklying Comments manual gentle ROM- painfree PT-OP-T Assessment and Plan Start: 08/27/21 15:44 Freq: Status: Active Protocol: Document 10/05/21 14:30 AMB (Rec: 10/06/21 07:31 AMB [id number]) Physical Therapy Assessment Goals Two Impairment Back Short Term Goal (STG) Beatrice will don her shoes and socks without back/hip pain. STG Duration 4 weeks Senior Living Goal (LTG) Beatrice will perform all bed mobility without back pain. LTG Duration 10 weeks One Impairment Shoulder Short Term Goal (STG) Beatrice will improve her passive shoulder flexion to at least 150 degrees. STG Duration 4 weeks Senior Living Goal (LTG) Beatrice will show improved shoulder strength by lifting a plate into her microwave without shoulder pain. LTG Duration 10 weeks Assessment Summary Assessment Beatrice had been improving but had two recent falls, tweaking the shoulder. She came to PT having pain with forward flexion to approx 120 degrees and left with 150-160 degrees without pain after treatment. Encouraged to continue with gentle HEP, but ER remains challenging. Physical Therapy Plan Next Visit Focus/Plan Next Note Type Treatment Note Next Visit Plan Discuss if we need to do a balance check given pt's two recent falls.
--- NOTE | 2021-10-07 15:39 | PT.OTN ---
Current Diagnoses Other chronic pain (10/07/21) Low back pain, unspecified (10/07/21) Other shoulder lesions, right shoulder (10/07/21) Physical Therapy Treatment Note PT-OP-A Visit Information Start: 08/27/21 15:44 Freq: Status: Active Protocol: Document 10/07/21 14:31 AMB (Rec: 10/07/21 15:39 AMB [id number]) Out-Patient Physical Therapy Visit Information Visit Information Visit Type Treatment Note Visit Start Time 14:30 Visit Stop Time 15:15 Total Visit Minutes 45 Visit Number 8 PT-OP-B Current Condition Start: 08/27/21 15:44 Freq: Status: Active Protocol: Document 08/31/21 14:30 AMB (Rec: 08/31/21 14:44 AMB [id number]) Current Condition History of Current Condition Onset Date 2 months, 2 years Current Complaints R shoulder pain/ left back pain History of Current Condition Beatrice reports Left hip and back pain that started years ago, when she was expanding a garden bed, getting shoes on in the morning is stiff with lumbar flexion, generally feels better throughout the day. Some days aching, other days not as bad. Right shoulder pain after pruning the tree started 2 months ago. Moving the arm across the body, lifting the arm away from the body both increase pain. Hard to fall asleep due to the pain (sidesleeper). Bending forward is difficult due to stiffness and pain. Does live alone. Treatment Goals Patient/Caregiver Goals Reduce pain for improved lifting/yardwork/sleep Prior Functional Status Baseline Function- ADL's Independent Baseline Function- Mobility Independent Personal Factors Other Personal Factors That May Effect osteopenia Therapy/Recovery PT-OP-C Subjective Start: 08/27/21 15:44 Freq: Status: Active Protocol: Document 10/07/21 14:31 AMB (Rec: 10/07/21 15:39 AMB [id number]) OP-PT Subjective Patient Comments Patient Comments Pt feeling better after last PT session. PT-OP-J Posture/Palpation/Skin Start: 08/27/21 15:44 Freq: Status: Active Protocol: Document 08/31/21 14:30 AMB (Rec: 09/01/21 11:11 AMB [id number]) Posture Evaluation Comments Posture Comments Winging medial border of scapula R>L. PT-OP-K Range of Motion Start: 08/27/21 15:44 Freq: Status: Active Protocol: Document 09/17/21 14:35 SP (Rec: 09/17/21 15:41 SP [id number]) Shoulder Goniometric Range of Motion Shoulder Right Passive Testing Position Sitting Flexion 142 Abduction 140 External Rotation at 0 degrees Abduction 75 Internal Rotation Behind Back (text) T9 Comments Taken AROM RUE little discomfort gained: 12 deg FF PT-OP-M Strength Start: 08/27/21 15:44 Freq: Status: Active Protocol: Document 08/31/21 14:30 AMB (Rec: 09/01/21 11:11 AMB [id number]) Shoulder Strength Shoulder Manual Muscle Testing Right Flexion 4 Good Abduction (C5) 4 Good External Rotation 3 Fair Internal Rotation 4+ Good+ Comments pain with resisted ER PT-OP-Q Treatments Start: 08/27/21 15:44 Freq: Status: Active Protocol: Document 10/07/21 14:31 AMB (Rec: 10/07/21 15:39 AMB [id number]) Therapeutic Exercises Standing Exercises shoulder abduction Resistance #1 t band Reps/Minutes 2x10 Comments 0-45 degrees shoulder IR Resistance #1 t band Reps/Minutes 2x10 shld ext Standing Exercise Name added to HEP Side bilateral Resistance TB #1 Reps/Minutes x10 Comments good form rows Standing Exercise Name reviewed HEP Side bilateral Resistance TB #1>#3 Reps/Minutes 2x10 Comments cued no LB arch Neuro Re-Education Treatment Balance Activities foam eyes closed Details challenging Comments EO HT ok with NBOS single leg stance Reps/Duration 15 seconds PT-OP-T Assessment and Plan Start: 08/27/21 15:44 Freq: Status: Active Protocol: Document 10/07/21 14:31 AMB (Rec: 10/07/21 15:39 AMB [id number]) Physical Therapy Assessment Goals Two Impairment Back Short Term Goal (STG) Beatrice will don her shoes and socks without back/hip pain. STG Duration 4 weeks Longterm Goal (LTG) Beatrice will perform all bed mobility without back pain. LTG Duration 10 weeks One Impairment Shoulder Short Term Goal (STG) Beatrice will improve her passive shoulder flexion to at least 150 degrees. STG Duration 4 weeks Role Player Goal (LTG) Beatrice will show improved shoulder strength by lifting a plate into her microwave without shoulder pain. LTG Duration 10 weeks Assessment Summary Assessment Beatrice's balance screen was WFL with good single leg balance for 15 seconds but she did struggle with eyes closed foam balance. She does feel like her balance is not as good as it was 2 years ago. Was able to tolerate more shoulder strengthening today, but continues to need to be careful with over shoulder height lifting. Physical Therapy Plan Next Visit Focus/Plan Next Note Type Treatment Note Next Visit Plan Continue shoulder strengthening.
--- NOTE | 2021-10-14 07:35 | PT.OPDS ---
Current Diagnoses Other chronic pain (10/07/21) Low back pain, unspecified (10/07/21) Other shoulder lesions, right shoulder (10/07/21) Visit Care Team Role Provider Type Elías Weldon MD Attending Provider Physician Family Provider Primary Care Provider Referring Provider Specialty: Internal Medicine Address: [address] [place] [address], [address] Email: [email or web address] Visit Number Visit Number 8 Discharge Summary PT-OP-B Current Condition Start: 08/27/21 15:44 Freq: Status: Active Protocol: Document 08/31/21 14:30 AMB (Rec: 08/31/21 14:44 AMB [id number]) Current Condition History of Current Condition Onset Date 2 months, 2 years Current Complaints R shoulder pain/ left back pain History of Current Condition Beatrice reports Left hip and back pain that started years ago, when she was expanding a garden bed, getting shoes on in the morning is stiff with lumbar flexion, generally feels better throughout the day. Some days aching, other days not as bad. Right shoulder pain after pruning the tree started 2 months ago. Moving the arm across the body, lifting the arm away from the body both increase pain. Hard to fall asleep due to the pain (sidesleeper). Bending forward is difficult due to stiffness and pain. Does live alone. Treatment Goals Patient/Caregiver Goals Reduce pain for improved lifting/yardwork/sleep Prior Functional Status Baseline Function- ADL's Independent Baseline Function- Mobility Independent Personal Factors Other Personal Factors That May Effect osteopenia Therapy/Recovery PT-OP-C Subjective Start: 08/27/21 15:44 Freq: Status: Active Protocol: Document 10/07/21 14:31 AMB (Rec: 10/07/21 15:39 AMB [id number]) OP-PT Subjective Patient Comments Patient Comments Pt feeling better after last PT session. PT-OP-J Posture/Palpation/Skin Start: 08/27/21 15:44 Freq: Status: Active Protocol: Document 08/31/21 14:30 AMB (Rec: 09/01/21 11:11 AMB [id number]) Posture Evaluation Comments Posture Comments Winging medial border of scapula R>L. PT-OP-K Range of Motion Start: 08/27/21 15:44 Freq: Status: Active Protocol: Document 09/17/21 14:35 SP (Rec: 09/17/21 15:41 SP [id number]) Shoulder Goniometric Range of Motion Shoulder Right Passive Testing Position Sitting Flexion 142 Abduction 140 External Rotation at 0 degrees Abduction 75 Internal Rotation Behind Back (text) T9 Comments Taken AROM RUE little discomfort gained: 12 deg FF PT-OP-M Strength Start: 08/27/21 15:44 Freq: Status: Active Protocol: Document 08/31/21 14:30 AMB (Rec: 09/01/21 11:11 AMB [id number]) Shoulder Strength Shoulder Manual Muscle Testing Right Flexion 4 Good Abduction (C5) 4 Good External Rotation 3 Fair Internal Rotation 4+ Good+ Comments pain with resisted ER PT-OP-T Assessment and Plan Start: 08/27/21 15:44 Freq: Status: Active Protocol: Document 10/14/21 07:33 AMB (Rec: 10/14/21 07:34 AMB [id number]) Physical Therapy Assessment Goals Two Impairment Back Short Term Goal (STG) Beatrice will don her shoes and socks without back/hip pain. STG Duration MET Canceling Machine Operator Goal (LTG) Beatrice will perform all bed mobility without back pain. LTG Duration MET One Impairment Shoulder Short Term Goal (STG) Beatrice will improve her passive shoulder flexion to at least 150 degrees. STG Duration Partially met Canceling Machine Operator Goal (LTG) Beatrice will show improved shoulder strength by lifting a plate into her microwave without shoulder pain. LTG Duration Partially met Assessment Summary Assessment Pt is feeling better and does not feel that she needs any more physical therapy. She has canceled her remaining appointments. Physical Therapy Plan Discharge Physical Therapy Discharge Reasons Patient Request
== END 2021-10-18 14:34 ==
LOC: PHYS 14:30
PROVIDERS: Family Provider Internal Medicine; PCP Internal Medicine; Referring Provider Internal Medicine; Visit Provider Internal Medicine
DX: M54.50 Low back pain, unspecified (principal); G89.29 Other chronic pain; M75.81 Other shoulder lesions, right shoulder
CPT/HCPCS: 97110; 97112; 97140; 97161; 97535

== ENCOUNTER → 2022-08-12 14:16 | Outpatient (CLI) | payer MEDICARE, SELFPAY ==
--- NOTE | 2022-08-12 | DI.MG.S_ITS ---
BILATERAL DIGITAL SCREENING MAMMOGRAM 3D/2D WITH CAD: 08/12/2022 CLINICAL: Routine screening. Family history of breast cancer. Comparison is made to exams dated: 05/20/2021 mammogram, 08/28/2018 mammogram, and 09/26/2017 mammogram - [facility]. Both breasts are heterogeneously dense, which may obscure small masses (category c / 51-75% glandular tissue). Current study was also evaluated with a Computer Aided Detection (CAD) system. No significant masses, calcifications, or other findings are seen in either breast. There has been no significant interval change. IMPRESSION: NEGATIVE There is no mammographic evidence of malignancy. A 1 year screening mammogram is recommended. Based on the Tyrer Cuzick model (a risk assessment model) the patient's lifetime risk is 4.9% and her 10 year risk is 0.0%. According to the ACR, ACS, and NCCN guidelines, an annual breast MRI exam along with mammogram is recommended if the patient's lifetime risk is 20% or greater. This exam was interpreted at Station ID: [id number]. NOTE: For mammograms, a report in lay terms will be sent to the patient. Approximately 15% of breast malignancies will not be visualized mammographically. In the management of a palpable breast mass, a negative mammogram must not discourage biopsy of a clinically suspicious lesion. Electronically Signed By: Den [email or web address]:08/12/2022 15:00:40 letter sent: Normal Exam ACR BI-RADS Category 1: Negative [id number]
== END ==
PROVIDERS: Family Provider Internal Medicine; PCP Internal Medicine; Referring Provider Internal Medicine; Visit Provider Internal Medicine
DX: Z12.31 Encounter for screening mammogram for malignant neoplasm of breast (principal); Z80.3 Family history of malignant neoplasm of breast
CPT/HCPCS: 77063; 77067

== ENCOUNTER → 2023-01-04 11:52 | Outpatient (CLI) | payer MEDICARE, SELFPAY ==
[2023-01-04 13:09] LABS: Alanine Aminotransferase 18 IU/L (<35); Albumin 4.1 g/dL (3.5-5.0); Albumin Globulin Ratio 1.8 (1.0-2.8); Alkaline Phosphatase 50 U/L (38-126); Aspartate Aminotransferase 23 IU/L (14-36); BUN Creatinine Ratio 30.8 (6-22); Bilirubin Total 0.3 mg/dL (0.2-1.3); Blood Urea Nitrogen 16 mg/dL (7-17); Calcium 9.2 mg/dL (8.4-10.2); Carbon Dioxide 30 mmol/L (22-32); Chloride 102 mmol/L (98-107); Cholesterol 180 mg/dL (140-199); Estimated Glomerular Filt Rate > 60 mL/min (>60); Globulin 2.3 g/dL (1.7-4.1); Glucose 89 mg/dL (80-110); HDL Cholesterol 79 mg/dL (40-60); HEMOLYSIS < 15 (0-50); LDL Cholesterol Calculated 91 mg/dL (<100); Sodium 136 mmol/L (137-145); Total Protein 6.4 g/dL (6.3-8.2); Triglycerides 52 mg/dL (35-150)
== END ==
PROVIDERS: Family Provider Internal Medicine; PCP Internal Medicine; Referring Provider Internal Medicine; Visit Provider Internal Medicine
DX: E78.2 Mixed hyperlipidemia (principal); I87.2 Venous insufficiency (chronic) (peripheral)
CPT/HCPCS: 36415; 80053; 80061; 84443

== ENCOUNTER → 2023-08-25 11:30 | Outpatient (CLI) | payer MEDICARE, SELFPAY ==
--- NOTE | 2023-08-25 11:32 | DI.MG.S_ITS ---
BILATERAL DIGITAL SCREENING MAMMOGRAM 3D/2D WITH CAD: 08/25/2023 CLINICAL: Routine screening. Family history of breast cancer. Comparison is made to exams dated: 08/12/2022 mammogram, 05/20/2021 mammogram, and 08/28/2018 mammogram - . Both breasts are heterogeneously dense, which may obscure small masses (category c / 51-75% glandular tissue). Current study was also evaluated with a Computer Aided Detection (CAD) system. No significant masses, calcifications, or other findings are seen in either breast. Right breast scar marker. There has been no significant interval change. IMPRESSION: NEGATIVE There is no mammographic evidence of malignancy. A 1 year screening mammogram is recommended. Based on the Tyrer Cuzick model (a risk assessment model) the patient's lifetime risk is 4.4% and her 10 year risk is 0.0%. According to the ACR, ACS, and NCCN guidelines, an annual breast MRI exam along with mammogram is recommended if the patient's lifetime risk is 20% or greater. This exam was interpreted at Station ID: [id number]. NOTE: For mammograms, a report in lay terms will be sent to the patient. Approximately 15% of breast malignancies will not be visualized mammographically. In the management of a palpable breast mass, a negative mammogram must not discourage biopsy of a clinically suspicious lesion. Electronically Signed By: Giuseppe Adorno M.D. [facility] [place]/:08/25/2023 15:38:03 letter sent: Normal Exam ACR BI-RADS Category 1: Negative [id number]
== END ==
PROVIDERS: Family Provider Internal Medicine; PCP Internal Medicine; Referring Provider Internal Medicine; Visit Provider Internal Medicine
DX: Z12.31 Encounter for screening mammogram for malignant neoplasm of breast (principal); Z80.3 Family history of malignant neoplasm of breast; R92.333 Mammographic heterogeneous density, bilateral breasts
CPT/HCPCS: 77063; 77067

== ENCOUNTER 2023-11-23 13:49 | Emergency (ER) | payer MEDICARE, SELFPAY ==
[2023-11-23 13:51] VITALS: BP 121/83; PULSE 92; RESP 14; TEMP 36.9; O2SAT 100; BMI 20.9
--- NOTE | 2023-11-23 13:55 | DI.RAD.S_ITS ---
PROCEDURE: XR WRIST RT MIN 3V INDICATIONS: fall,wrist injury TECHNIQUE: 4 views of the wrist were acquired. COMPARISON: None. FINDINGS: Bones: Suspect minimally displaced dorsal radius fracture. Possible minimally displaced ulnar styloid fracture. Background [id number] degenerative changes Soft tissues: Soft tissue swelling is present. IMPRESSION: Possible minimally displaced distal radius and ulnar styloid fractures. Slight cortical step-off seen on lateral view at the dorsal radius. Background degenerative changes Dictated by: Jerson Lyn M.D. on 11/23/2023 at 15:26 Approved by: Jerson Lyn M.D. on 11/23/2023 at 15:27
--- NOTE | 2023-11-23 15:35 | ED.FALL ---
HPI - Fall General Chief Complaint: Fall Stated Complaint: Fall, hit head, no blood thinners Time Seen by Provider: 11/23/23 13:58 Source: patient Mode of arrival: Ambulatory History of Present Illness HPI Narrative: Patient is a 77-year-old female history of osteopenia presenting today after mechanical ground level fall yesterday. She reports of right wrist pain and swelling. She would trouble starting her car today which is a [employer] ignition. She did fall and hit her head but did not lose consciousness. She has a small bruise. He has no nausea vomiting or other symptoms. She does take 2 baby aspirin daily but that is it. She has some small abrasion on her knees. She has been doing okay but just having increasing pain and swelling in the right wrist more so today. She is right-hand dominant. Related Data Home Medications Medication Instructions Recorded Confirmed aspirin 81 mg tablet,delayed 81 mg PO QDAY ##0 10/30/12 12/21/22 release metronidazole 0.75 % topical cream 0.75 % topical QDAY ##45 10/30/12 12/21/22 (MetroCream) bimatoprost 0.03 % drops with 1 applic topical DAILY 07/15/21 12/21/22 applicator, eyelash base (Latisse) cholecalciferol (vitamin D3) 50 50 mcg PO DAILY 07/15/21 12/21/22 mcg (2,000 unit) capsule minoxidil 2 % topical solution 1 ml topical BID 07/15/21 12/21/22 (Rogaine) calcium carbonate 600 mg PO DAILY 12/16/21 12/21/22 diphenhydramine HCl 25 mg capsule 25 mg PO BEDTIME PRN 12/16/21 12/21/22 multivitamin 1 tab PO DAILY 12/16/21 12/21/22 Previous Rx's Medication Instructions Recorded rosuvastatin 10 mg tablet 10 mg PO DAILY #90 tabs 12/16/21 erythromycin with ethanol 2 % 1 applic topical BID PRN rash #60 01/24/22 topical solution mL hydrochlorothiazide 25 mg tablet See Rx Instructions .Route 12/21/22 .COMPLEX #90 tabs potassium chloride 8 mEq 8 meq PO BID #180 tabs 12/22/22 tablet,extended release escitalopram oxalate 5 mg tablet 5 mg PO DAILY #90 tabs 05/09/23 estradiol 0.01% (0.1 mg/gram) 1 g vaginal .COMPLEX #42.5 grams 06/08/23 vaginal cream (Estrace) zaleplon 5 mg capsule 5 mg PO BEDTIME PRN sleep #30 caps 07/10/23 Allergies Allergy/AdvReac Type Severity Reaction Status Date / Time gabapentin [From Gabarone] Allergy Intermediate Rash Verified 11/23/23 13:51 neomycin Allergy Mild Rash Verified 11/23/23 13:51 gold sodium thiomalate Allergy Rash Verified 11/23/23 13:51 colophony Allergy Rash Uncoded 12/21/22 09:39 dispurse blue 106 Allergy Rash Uncoded 12/21/22 09:39 Nickel sulfate Allergy Rash Uncoded 12/21/22 09:39 P-phenylenediamine Allergy Rash Uncoded 12/21/22 09:39 Patient History Medical History Venous (peripheral) insufficiency Generalized anxiety disorder Do not resuscitate Hammertoe of right foot Primary osteoarthritis involving multiple joints Mixed hyperlipidemia Rosacea (~1994) Eczema (~2015) Depression (~2009) Osteopenia Chronic back pain (~2020) Scarlet fever (~1951) Mumps (~1952) Measles (~1949) Chicken pox (~1948) Cataracts, bilateral (~2018) Mitral valve regurgitation PVC (premature ventricular contraction) Skin cancer (~2006) Insomnia Hypertension Urinary retention Frequent UTI Surgical History Anesthesia History of appendectomy (~1955) Family History Father Peritonitis Mother Alzheimer's disease Brother Depression Mental health problem Grandmother Stroke Grandmother History of heart disease Social History details: (2019), four children; from [facility] household members: spouse Smoking Status: Unknown if ever smoked alcohol intake: current substance use type: does not use Smoking Status: Unknown if ever smoked alcohol intake frequency: holidays/special occasions only Substance Use Type: does not use Exam Initial Vital Signs Initial Vital Signs: Vital Signs Temperature 98.5 F 11/23/23 13:51 Pulse Rate 92 H 11/23/23 13:51 Respiratory Rate 14 11/23/23 13:51 Blood Pressure 121/83 11/23/23 13:51 Pulse Oximetry 100 11/23/23 13:51 Oxygen Delivery Method Room Air 11/23/23 13:51 GENERAL: Alert well-appearing 77-year-old female HEENT: Head contusion right temporal area no depression no crepitation,EOMI, pupils reactive, face symmetric, moist mucous membranes NECK: No vertebral tenderness no step-off CARDIOVASCULAR: Regular rate and rhythm without murmurs, rubs or gallops. RESPIRATORY: Breath sounds equal bilaterally, no wheezes rales or rhonchi. EXTREMITIES: Normal range of motion, no clubbing or edema. Neurovascularly intact Right wrist swelling distal radial pulse intact radial median ulnar nerve motor and sensory intact NEUROLOGICAL: Alert and oriented x4. SKIN: Contusion noted right temporal area Procedures Orthopedic Splinting/Casting Injury #1: Side: right Upper Extremity Injury Location: wrist Upper Extremity Immobilizer: sling/shoulder immobilizer, posterior splint and volar splint Post splinting neuro exam: intact Post splinting vascular exam: intact Placed by: Nursing Course Orders Ordered: ED Orders 11/23/23 13:55 XR wrist RT min 3V Stat Vital Signs Vital signs: Vital Signs - 8 hr 11/23/23 13:51 11/23/23 16:23 Temperature 98.5 F Pulse Rate 92 H 93 H Respiratory Rate 14 14 Blood Pressure 121/83 126/85 Pulse Oximetry 100 100 Oxygen Delivery Method Room Air Room Air MDM - Fall Imaging Data Extremity x-ray #1: Radiologist's Impression: PROCEDURE: XR WRIST RT MIN 3V INDICATIONS: fall,wrist injury TECHNIQUE: 4 views of the wrist were acquired. COMPARISON: None. FINDINGS: Bones: Suspect minimally displaced dorsal radius fracture. Possible minimally displaced ulnar styloid fracture. Background [id number] degenerative changes Soft tissues: Soft tissue swelling is present. IMPRESSION: Possible minimally displaced distal radius and ulnar styloid fractures. Slight cortical step-off seen on lateral view at the dorsal radius. Background degenerative changes Dictated by: Jerson Lyn M.D. on 11/23/2023 at 15:26 MDM Narrative Medical decision making narrative: Patient is 77-year-old female presents today with a mechanical ground level fall that happened yesterday. She did not hit her head but no loss of consciousness she has not had any nausea vomiting or other symptoms. At this time I do not think she needs head CT injury happened 24 hours ago. She does have significant swelling of her right wrist. X-ray does show probable displaced radial and ulnar fractures. She is neurologically intact at this time it is minimally displaced so no reduction is indicated. She is placed in a splint and recommended to follow-up with orthopedics. She reports that Tylenol works well for pain Discharge Plan Departure Patient Disposition: Home Clinical Impression: Closed fracture of right wrist Instructions: Wrist Fracture Activity Restrictions/Additional Instructions: *You have been diagnosed with wrist fracture *What to do: At this time keep arm in splint. Elevate and ice as much as possible. Keep arm in splint if you should need to shower please cover in a plastic bag *Continue to take medications as directed Tylenol 650 mg every 4-6 hours if needed for [id number] *Follow up with your primary care provider in 2-3 days or call [phone] Please call [facility] Orthopedic surgery follow-up. I do not anticipate that you will need surgery *Return to ER if you should have increasing pain swelling numbness tingling or any new, worsening or concerning symptoms Prescriptions: No Action metronidazole [MetroCream] 0.75 % cream 0.75 % Topical QDAY Qty: 45 aspirin 81 MG tablet,delayed release (DR/EC) 81 mg PO QDAY Qty: 0 erythromycin with ethanol 2 % solution 1 applic topical BID PRN (Reason: rash) Qty: 60 0RF Rx Instructions: Erythromycin Topical Solution 2 % (Apply one drop to affected area twice a day as needed, externally for 10 days potassium chloride 8 mEq tablet extended release 8 meq PO BID Qty: 180 3RF Rx Instructions: This script replaces capsules to tablets. escitalopram oxalate 5 mg tablet 5 mg PO DAILY Qty: 90 0RF Rx Instructions: decrease from 10 mg to 5 mg QD. estradiol [Estrace] 0.01 % (0.1 mg/gram) cream 1 g Vaginal .COMPLEX Qty: 42.5 3RF Rx Instructions: 1 g vaginally 2-3x/week; zaleplon 5 mg capsule 5 mg PO BEDTIME PRN (Reason: sleep) Qty: 30 5RF Rx Instructions: must avoid high-fat meal/food immediately before taking dose multivitamin Tablet 1 tab PO DAILY calcium carbonate 600 mg calcium (1,500 mg) tablet 600 mg PO DAILY diphenhydramine HCl 25 mg capsule 25 mg PO BEDTIME PRN rosuvastatin 10 mg tablet 10 mg PO DAILY Qty: 90 3RF hydrochlorothiazide 25 mg tablet See Rx Instructions .ROUTE .COMPLEX Qty: 90 3RF Dose Instruction: TAKE ONE TABLET BY MOUTH ONE TIME DAILY Rx Instructions: TAKE ONE TABLET BY MOUTH ONE TIME DAILY bimatoprost [Latisse] 0.03 % drops with applicator 1 applic topical DAILY cholecalciferol (vitamin D3) 50 mcg (2,000 unit) capsule 50 mcg PO DAILY minoxidil [Rogaine] 2 % solution 1 ml topical BID Referrals: [facility] [Provider Group] Elías Weldon MD [Primary Care Provider] - Stand Alone Forms: Patient Portal/API
[2023-11-23 16:23] VITALS: BP 126/85; PULSE 93; RESP 14; O2SAT 100
== END 2023-11-23 16:26 | disposition home or self-care (01) ==
PROVIDERS: Emergency Provider Emergency Medicine; Family Provider Internal Medicine; PCP Internal Medicine
DX: S52.501A Unspecified fracture of the lower end of right radius, initial encounter for closed fracture (principal); S09.90XA Unspecified injury of head, initial encounter; W18.30XA Fall on same level, unspecified, initial encounter
CPT/HCPCS: 29125; 73110; 99283

== ENCOUNTER → 2023-12-27 10:28 | Outpatient (CLI) | payer MEDICARE, SELFPAY ==
[2023-12-27 12:49] LABS: Aspartate Aminotransferase 21 IU/L (14-36); BUN Creatinine Ratio 25.5 (6-22); Blood Urea Nitrogen 12 mg/dL (7-17); Calcium 8.9 mg/dL (8.4-10.2); Carbon Dioxide 28 mmol/L (22-32); Chloride 103 mmol/L (98-107); Cholesterol 162 mg/dL (140-199); Estimated Glomerular Filt Rate > 60 mL/min (>60); Glucose 89 mg/dL (80-110); HDL Cholesterol 73 mg/dL (40-60); HEMOLYSIS < 15 (0-50); LDL Cholesterol Calculated 81 mg/dL (<100); Potassium 4.2 mmol/L (3.4-5.1); Sodium 135 mmol/L (137-145); Triglycerides 40 mg/dL (35-150)
== END ==
PROVIDERS: Family Provider Internal Medicine; PCP Internal Medicine; Referring Provider Internal Medicine; Visit Provider Internal Medicine
DX: E78.2 Mixed hyperlipidemia (principal); I87.2 Venous insufficiency (chronic) (peripheral)
CPT/HCPCS: 36415; 80048; 80061; 84450

== ENCOUNTER → 2024-01-10 12:49 | Outpatient (CLI) | payer MEDICARE, SELFPAY ==
--- NOTE | 2024-01-10 12:50 | DI.RAD.S_ITS ---
PROCEDURE: XR DEXA AXIAL SKELETON INDICATIONS: osteopenia, wrist fracture COMPARISON: [facility], CR, XR DEXA AXIAL SKELETON, 05/03/2021, 15:09. FINDINGS: Lumbar Spine: Bone mineral density 0.973 g/cm2, T score -0.6, compared to -1.0. Left Hip: Bone mineral density 0.664 g/cm2, T score -2.3, compared to -1.7. Left Femoral Neck: Bone mineral density 0.542 g/cm2, T score -2.8, compared to -2.1. Right Hip: Bone mineral density 0.757 g/cm2, T score -1.5, compared to -1.1. Right Femoral Neck: Bone mineral density 0.681 g/cm2, T score -1.5, compared to -1.3. Fracture Risk Calculation (when applicable): 10-year fracture risk of a major osteoporotic fracture 17 percent and of a hip fracture 6.4 percent. (T score greater or equal to -1.0 to: NORMAL) (T score from -1.1 to -2.4: OSTEOPENIA) (T score less than or equal to -2.5: OSTEOPOROSIS) IMPRESSION: Progressive osteopenia and now osteoporosis in the left femoral neck. Follow-up guidelines as follows: Osteoporosis: Consider a repeat DEXA and Vertebral Fracture Assessment (VFA) exam in 2 years or sooner if medically necessary, to reassess this patient's status. Osteopenia: Consider a repeat DEXA in 2-3 years to reassess this patient's status, or if there is a new clinical indication. Normal: Consider a repeat DEXA in 5 years or sooner, or if there is a new clinical indication. All treatment decisions require clinical judgment and consideration of individual patient factors, including patient preferences, comorbidities, previous drug use, risk factors not captured in the FRAX model (e.g., frailty, falls, vitamin D deficiency, increased bone turnover, interval significant decline in bone density ) and possible under- or over-estimation of fracture risk by FRAX. In addition, the NOF Guide recommends that FDA-approved medical therapies be considered in postmenopausal women and men age >= 50 years with a: * Hip or vertebral (clinical or morphometric) fracture * T-score of <=-2.5 at the spine or hip * Ten-year fracture probability by FRAX of >= 3% for hip fracture or >=20% for major osteoporotic fracture. People with diagnosed cases of osteoporosis or at high risk for fracture should have regular bone mineral density tests. For patients eligible for Medicare, routine testing is allowed once every 2 years. The testing frequency can be increased to one year for patients who have rapidly progressing disease, those who are receiving or discontinuing medical therapy to restore bone mass, or have additional risk factors. Dictated by: Maribeth Ortega M.D. on 01/10/2024 at 17:01 Approved by: Maribeth Ortega M.D. on 01/10/2024 at 17:03
== END ==
LOC: RAD 12:50
PROVIDERS: Family Provider Internal Medicine; PCP Internal Medicine; Referring Provider Internal Medicine; Visit Provider Internal Medicine
DX: M81.0 Age-related osteoporosis without current pathological fracture (principal)
CPT/HCPCS: 77080

== ENCOUNTER → 2024-03-13 14:16 | Outpatient (CLI) | payer MEDICARE, SELFPAY ==
[2024-03-13 15:40] LABS: Rheumatoid Factor < 8.6 IU/mL (<12.0)
== END ==
LOC: LAB 14:17
PROVIDERS: Family Provider Internal Medicine; PCP Internal Medicine; Referring Provider Internal Medicine; Visit Provider Internal Medicine
DX: M06.9 Rheumatoid arthritis, unspecified (principal)
CPT/HCPCS: 86200; 86430

== ENCOUNTER → 2024-07-09 17:14 | Outpatient (CLI) | payer MEDICARE, SELFPAY ==
--- NOTE | 2024-07-09 17:15 | DI.RAD.S_ITS ---
PROCEDURE: XR KNEE LT 3V INDICATIONS: left knee pain TECHNIQUE: 3 views of the knee were acquired. COMPARISON: None. FINDINGS: Bones: Ossification lateral to the patella likely reflects an old avulsion fracture . A 2.7 cm lobulated mass with chondroid calcifications appears to arise from the lateral cortex of the distal femoral metadiaphysis. This could represent atypical chondroma. It could also represent a loose body Joints: Severe patellofemoral and mild tibiofemoral degeneration appreciated . There are 2 loose bodies overlying the posterior central bodies overlying the posterior central tibial femoral joint lateral patellar subluxation suggesting patellar Ms. Tracking Posterior central tibial femoral joint Soft tissues: Normal IMPRESSION: 2.7 cm lobulated mass which appears to arise from the lateral cortex of the distal femoral diaphysis. It also may merely represent a loose body. Suggest knee MRI. Severe patellofemoral degeneration with lateral patellar subluxation. . Mild tibiofemoral degeneration Dictated by: Dave Raines M.D. on 07/10/2024 at 11:55 Approved by: Dave Raines M.D. on 07/10/2024 at 12:00
--- NOTE | 2024-07-09 17:15 | DI.RAD.S_ITS ---
PROCEDURE: XR SACRUM COCCYX MIN 2V INDICATIONS: si joint pain TECHNIQUE: 3 views of the sacrum and coccyx acquired. COMPARISON: None. FINDINGS: Bones: There are no osseous abnormalities. SI and hip joints: Moderate arthritic change inferior right hip noted likely atypical degeneration. Left hip and both SI joints are normal with align with arthritic change. Severe L4-5 and L5-S1 degenerative disc and facet disease noted Soft tissues: No soft tissue swelling, calcification or mass. IMPRESSION: Normal sacrum and coccyx. Atypical degeneration inferior right hip Severe L4-5 and L5-S1 degenerative disc and facet disease Dictated by: Dave Raines M.D. on 07/10/2024 at 11:53 Approved by: Dave Raines M.D. on 07/10/2024 at 11:54
== END ==
PROVIDERS: Family Provider Internal Medicine; PCP Internal Medicine; Referring Provider Internal Medicine; Visit Provider Internal Medicine
DX: M46.1 Sacroiliitis, not elsewhere classified (principal); M17.12 Unilateral primary osteoarthritis, left knee; S83.012A Lateral subluxation of left patella, initial encounter; M89.9 Disorder of bone, unspecified; M16.11 Unilateral primary osteoarthritis, right hip; M47.816 Spondylosis without myelopathy or radiculopathy, lumbar region; M47.817 Spondylosis without myelopathy or radiculopathy, lumbosacral region; M51.369 Other intervertebral disc degeneration, lumbar region without mention of lumbar back pain or lower extremity pain; M51.379 Other intervertebral disc degeneration, lumbosacral region without mention of lumbar back pain or lower extremity pain
CPT/HCPCS: 72220; 73562

== ENCOUNTER → 2024-09-04 12:22 | Outpatient (CLI) | payer MEDICARE, SELFPAY ==
--- NOTE | 2024-09-04 12:25 | DI.RAD.S_ITS ---
PROCEDURE: XR CHEST 2V INDICATIONS: right sided chest pain TECHNIQUE: 2 views of the chest were acquired. COMPARISON: None. FINDINGS: Heart, mediastinum and pulmonary vascular: Heart is normal in size and configuration. Mediastinum is unremarkable. Pulmonary vascular is normal. Lungs: Clear Pleural spaces: Normal-no effusions or pneumothorax. IMPRESSION: No cardiopulmonary disease Dictated by: Dave Raines M.D. on 09/05/2024 at 12:23 Approved by: Dave Raines M.D. on 09/05/2024 at 12:24
== END ==
LOC: RAD 12:24
PROVIDERS: Family Provider Internal Medicine; PCP Internal Medicine; Referring Provider Internal Medicine; Visit Provider Internal Medicine
DX: R07.89 Other chest pain (principal); R05.9 Cough, unspecified
CPT/HCPCS: 71046

== ENCOUNTER → 2024-09-20 16:09 | Outpatient (CLI) | payer MEDICARE, SELFPAY | PROVIDERS: Family Provider Internal Medicine; PCP Internal Medicine; Visit Provider Nurse Practitioner Family | DX: R10.2 Pelvic and perineal pain (principal) | CPT/HCPCS: 87077; 87086; 87186 ==

== ENCOUNTER → 2024-10-10 09:43 | Outpatient (CLI) | payer MEDICARE, SELFPAY ==
--- NOTE | 2024-10-10 09:45 | DI.US.S_ITS ---
PROCEDURE: US ABDOMEN LIMITED INDICATIONS: r/o mass @ belly button TECHNIQUE: Real-time focused scanning was performed of the abdomen, with image documentation. COMPARISON: None. FINDINGS: In the area just superior to the umbilicus, approximately 1.5 cm above, there is a body wall herniation through a defect that measures 8 mm craniocaudad and 1 cm transverse, containing extruded abdominal content measuring 2.3 x 1.2 x 2.0 cm into the subcutaneous fat, likely omentum. IMPRESSION: Supraumbilical presumed omental hernia measuring up to 2.3 cm through a defect measuring up to 1.0 cm that is located 1.5 cm above the umbilicus. Manual reduction of this herniation by sonographic compression could not be achieved. Please correlate clinically for whether surgical consultation is warranted at this time. Dictated by: Efrain Ram M.D. on 10/10/2024 at 10:34 Approved by: Efrain Ram M.D. on 10/10/2024 at 10:37
== END ==
PROVIDERS: Family Provider Internal Medicine; PCP Internal Medicine; Referring Provider Internal Medicine; Visit Provider Physician Assistant
DX: K42.0 Umbilical hernia with obstruction, without gangrene (principal); R10.9 Unspecified abdominal pain
CPT/HCPCS: 76705

== ENCOUNTER → 2024-10-11 13:33 | Outpatient (CLI) | payer MEDICARE, SELFPAY ==
--- NOTE | 2024-10-11 13:35 | DI.MG.S_ITS ---
MM diagnostic mammo BI, US breast RT limited: 10/11/2024 BI-RADS: 1 CLINICAL: 78-year old female for bilateral diagnostic mammogram and right diagnostic breast ultrasound. Tyrer-Cuzick lifetime risk of 3.7%. No personal or first- degree family history of breast cancer. Current reported family history of breast cancer: maternal aunt. The patient reports lateral breast pain (3 months) in the right breast which has decreased since initial presentation. The patient also reports a palpable abnormality in the right breast. The patient had a prior right breast biopsy. PRIOR EXAMS 08/25/2023, 09/22/2022, 05/20/2021, 08/28/2018, 10/11/2017. MAMMOGRAPHY TECHNIQUE: 2D and 3D (tomosynthesis) digital mammographic views obtained, with additional images as needed for full coverage. Current study was also evaluated with a Computer Aided Detection (CAD) system. ULTRASOUND TECHNIQUE Real-time ballesteros scale imaging of the area of clinical interest was performed with image documentation. TARGETED Right Breast Ultrasound: Real-time ultrasound exam was performed focused to area of clinical and/or imaging concern. DENSITY C. The breasts are heterogeneously dense, which may obscure small masses. MAMMOGRAPHY FINDINGS Right (finding-1): Axillary Tail Outer, Posterior depth: A skin marker was placed in the area of concern, and no mammographic abnormalities are identified or to account for concern by the patient of a palpable lump. No suspicious mass, asymmetry, microcalcification, or other abnormality seen. Left: No suspicious mass, asymmetry, microcalcification, or other abnormality seen. No significant change from comparison. ULTRASOUND FINDINGS Right (finding-1): Upper at 12:00, 12 cm from nipple: Underlying the surface marker, there is no sonographic abnormality to account for concern by the patient of a palpable lump. IMPRESSION: * No evidence of malignancy. RECOMMENDATIONS Bilateral * Annual screening mammography. COMMENTS: Findings and recommendations were conveyed to the patient during today's evaluation. OVERALL ASSESSMENT CATEGORY BI-RADS-1: Negative. The [employer] recommends annual screening mammography beginning at age 40 for women with average risk of breast cancer. ELECTRONICALLY SIGNED: Jeny Terry M.D. on 10/11/2024 at 02:44:40 PM PT Interpreting Station ID: [id number]
== END ==
PROVIDERS: Family Provider Internal Medicine; PCP Internal Medicine; Referring Provider Physician Assistant; Visit Provider Physician Assistant
DX: N64.4 Mastodynia (principal); Z80.3 Family history of malignant neoplasm of breast; R92.333 Mammographic heterogeneous density, bilateral breasts
CPT/HCPCS: 76642; 77066; G0279

== ENCOUNTER → 2024-12-05 11:11 | Outpatient (CLI) | payer MEDICARE, SELFPAY ==
--- NOTE | 2024-12-05 11:13 | DI.MRI.S_ITS ---
PROCEDURE: MR LUMBAR SPINE WO CON INDICATIONS: Chronic progressive low back TECHNIQUE: Noncontrast sagittal T1 spin echo and T2 fast echo, sagittal STIR, and T2 fast spin echo through the lumbar spine. In cases with scoliosis, additional coronal T2 fast spin echo may be performed. COMPARISON: None. FINDINGS: Image quality: Excellent. Alignment and Curvature: Grade 1 anterolisthesis at L5-S1. 4 mm retrolisthesis L1-L2. Bone Marrow: Type 1 Modic changes at L5-S1 and T11-T12. No acute vertebral body compression fractures. Spinal Cord: Conus medullaris terminates at the L2 level. Visualized cord demonstrates normal signal and size. Paraspinous Soft Tissues: No paravertebral masses. T12-L1: Posterior disc bulge. No spinal canal or foraminal stenosis. L1-L2: Pseudo disc bulge due to retrolisthesis. No spinal canal or foraminal stenosis. L2-L3: Mild posterior disc bulge. No spinal canal or foraminal stenosis. L3-L4: Mild facet hypertrophy. No spinal canal or foraminal stenosis. L4-L5: Posterior disc bulge and bilateral facet hypertrophy with moderate bilateral left greater than right foraminal stenosis and no spinal canal stenosis. L5-S1: Pseudo disc bulge and bilateral facet hypertrophy with left pars defect. Moderate right and severe left foraminal stenosis. No spinal canal stenosis. IMPRESSION: Left L5 pars defect with grade 1 anterolisthesis at L5-S1. Inflammatory Modic changes at L5-S1 and T11-T12. Multilevel moderate to severe foraminal stenosis detailed above. Dictated by: Zaki Nuñez M.D. on 12/05/2024 at 12:28 Approved by: Zaki Nuñez M.D. on 12/05/2024 at 12:45
== END ==
PROVIDERS: PCP Internal Medicine; Referring Provider Physical Medicine & Rehabilitation; Visit Provider Physical Medicine & Rehabilitation
DX: M47.816 Spondylosis without myelopathy or radiculopathy, lumbar region (principal); M47.817 Spondylosis without myelopathy or radiculopathy, lumbosacral region; M48.061 Spinal stenosis, lumbar region without neurogenic claudication; M48.07 Spinal stenosis, lumbosacral region; M43.17 Spondylolisthesis, lumbosacral region
CPT/HCPCS: 72148

== ENCOUNTER → 2025-01-07 09:09 | Outpatient (CLI) | payer MEDICARE, SELFPAY ==
[2025-01-07 09:52] LABS: Hematocrit 42.4 % (36-46); Hemoglobin 14.4 g/dL (12.0-16.0); Mean Corpuscular HGB Conc 33.9 % (30-36); Mean Corpuscular Hemoglobin 31.8 PG (26-34); Mean Corpuscular Volume 93.7 fL (80-100); Platelet Count 289 X10^3/uL (150-400)
[2025-01-07 11:09] LABS: Alanine Aminotransferase 20 IU/L (<35); Albumin 4.4 g/dL (3.5-5.0); Albumin Globulin Ratio 1.8 (1.0-2.8); Alkaline Phosphatase 46 U/L (38-126); Blood Urea Nitrogen 19 mg/dL (7-17); Calcium 9.7 mg/dL (8.4-10.2); Carbon Dioxide 30 mmol/L (22-32); Chloride 97 mmol/L (98-107); Cholesterol 176 mg/dL (140-199); Estimated Glomerular Filt Rate > 60 mL/min (>60); Globulin 2.4 g/dL (1.7-4.1); Glucose 92 mg/dL (70-99); HDL Cholesterol 89 mg/dL (40-60); HEMOLYSIS < 15 (0-50); Potassium 4.2 mmol/L (3.4-5.1); Sodium 135 mmol/L (137-145); Total Protein 6.8 g/dL (6.3-8.2); Triglycerides 47 mg/dL (35-150)
[2025-01-07 11:39] LABS: TSH w/ Reflex to FT4 3.10 uIU/mL (0.47-4.68)
== END ==
PROVIDERS: PCP Internal Medicine; Referring Provider Internal Medicine; Visit Provider Internal Medicine
DX: E78.2 Mixed hyperlipidemia (principal); I87.2 Venous insufficiency (chronic) (peripheral); R53.83 Other fatigue
CPT/HCPCS: 36415; 80053; 80061; 84443; 85027

== ENCOUNTER 2025-01-24 13:00 | Outpatient (RCR) | payer MEDICARE, SELFPAY ==
--- NOTE | 2024-12-31 16:30 | PT.OIE ---
Current Diagnoses Other chronic pain (12/31/24) Low back pain, unspecified (12/31/24) Past Medical History (Last Reviewed 12/03/24 @ 15:25 by Elías Weldon MD) Arthritis of knee, left Cataracts, bilateral (~2018) Chicken pox (~1949) Chronic back pain (~2020) Depression (~2009) Do not resuscitate Eczema (~2016) Facet arthropathy, lumbar Frequent UTI Generalized anxiety disorder Hammertoe of right foot Hypertension Insomnia Lumbar foraminal stenosis Measles (~1949) Mitral valve regurgitation Mixed hyperlipidemia Mumps (~1952) Osteopenia Primary osteoarthritis involving multiple joints Primary osteoarthritis of left knee PVC (premature ventricular contraction) Rosacea (~1994) Scarlet fever (~1951) Skin cancer (~2006) Urinary retention Venous (peripheral) insufficiency Past Surgical History (Last Reviewed 12/03/24 @ 15:25 by Elías Weldon MD) Anesthesia History of appendectomy (~1955) Visit Care Team Role Provider Type Elías Weldon MD Attending Provider Physician Family Provider Primary Care Provider Referring Provider Specialty: Internal Medicine Address: [address] [place] [address] Email: [email or web address] Physical Therapy Initial Evaluation PT OP: Pelvic Health Start: 12/31/24 13:12 Freq: Status: Active Protocol: Document 12/31/24 14:31 [facility] (Rec: 12/31/24 14:41 [facility] [id number]) Out-Patient Physical Therapy Visit Information Visit Information Visit Type Initial Evaluation Visit Start Time 14:30 Visit Stop Time 15:15 Visit Number 1 Current Condition History of Current Condition Onset Date May 2024 Current Complaints low back pain History of Current pain began in May 2024. SHe had been doing some Condition gardening where she was digging out some bulbs that were super heavy. That night after gardening she reports walking up in the middle of the night to go to the bathroom and could barely move. Xrays were taken and show severe DJD at L5-S1. She was referred to Dr. Velazco but it took 4 months to get in. Bending over and lifting are the things that aggravate her back the most and Santos has not been able to return to gardening. A MRI has been taken and shows L5 pars defect with grade 1 anterolisthesis, inflammatory modic changes at L5-S1, multi level foraminal stenosis at L5-S1 and T11- 12 Treatment Goals Patient/Caregiver Santos's goals include reducing pain and improving Goals function Patient Questionnaires Oswestry Low Back Index Oswestry Score 9 Oswestry Impairment 1 to 19% Impaired (Score 1-19) OP-PT Pain Assessment Location low back Pain Location across the bilateral low back Details Pain Intensity 4-8 Scale Used Numeric (0 - 10) Manual Assessments Soft Tissue Assessment Soft Tissue Mobility tightness in the lumbar paraspnals, pirifromis Assessment tightness left side more than right side Joint Mobility Assessment Joint Mobility left inflare and sacral torsion Assessment Lumbar Spine Range of Motion Lumbar Spine Active Testing Position Standing Flexion 30 Lateral Flexion Left 20 Lateral Flexion 10 Right ROM Limitations Soft Tissue Tightness,Pain Comments pain is increased with attempt at lumbar flexion and hands to knees only sidebending right is painful Trunk Strength Trunk Manual Muscle Testing Testing Position Supine Flexion 3- Fair- Core Stabilization poor transverse abdominal and pelvic floor strength Hip Strength Hip Manual Muscle Testing Left Flexion (L2) 3 Fair Extension (S1) 3 Fair Abduction 3 Fair External Rotation 3 Fair Right Flexion (L2) 3+ Fair+ Extension (S1) 3 Fair Abduction 3 Fair External Rotation 3 Fair Therapeutic Exercises Supine Exercises piriformis stretch Reps/Minutes hold 30sec-1min each side supine pelvic tilt with ball squeeze Reps/Minutes x 10 reps Other Exercises sit-stand with pelvic floor engagement Reps/Minutes pt cued to hinge at her hips each time she stands up Physical Therapy Assessment Rehab Potential Rehabilitation Excellent Potential Evaluation Complexity Number of Personal 0 Factors/ Comorbidities Number of Body 1-2 Systems Impaired Clinical Stable Presentation at Evaluation Impairments Impairments Activity Tolerance,Functional Activities,Functional Mobility,Gait,Posture,Tone Goals 3 Impairment decreased strength of the core and hip muscles, it is very difficult for Santos to perform a bridge or a mini squat in proper form City Administrator Goal (LTG) Santos presents with improved strength of her core and hip muscle strength by improving by one muscle grade LTG Duration 12 weeks 2 Impairment decreased lumbar flexion and right sidebending ROM and both cause pain Correction Goal (LTG) Lumbar flexion and right sidebending are WFL and pain free LTG Duration 12 weeks 1 Impairment lumbar flexion increases pain and Santos has difficulty placing any pans in the oven as it is low and she has to bend forward Short Term Goal (STG Santos is educated on correct body mechanics for ADL's ) STG Duration 4 weeks Correction Goal (LTG) Santos is able to improve lumbar flexion to WFL without pain and is able to use a squat position to place a dish in the oven LTG Duration 12 weeks Assessment Summary Assessment Santos is a 79 year old female who presents to PT today with c/o bilateral LBP and sacral pain that started in May of 2024 following gardening. A MRI does show a L5 pars defect with grade 1 anterloisthesis, imflammatory modic changes at L5-S1, and multi level foraminal stenosis. With evaluation today Santos is most affected with lumbar flexion as this increases pain. She presents with a increased lordosis and weakness of her core and hips. She is tight in her piriformis bilaterally and left leg is shorter in supine. She has difficulty with functional activities such as placing a dish in her oven that is low as bending forward increases pain. We discussed body mechanics today and I assessed Santos's squat which is very limited due to knee pain. She was shown a sit-stand and cued on how the hips can hinge and how this protects her back. She was also educated on how to activate her core and working on pelvic tilts for her sacrum. She was also shown diaphragmatic breathing and a piriformis stretch. She tolerated treatment well today and is a good candidate for PT. Physical Therapy Plan Frequency and Duration Frequency of 2x/Week Treatment Duration of 12 treatment (weeks) Plan of Care Start 12/31/24 Date Plan of Care End 03/25/25 Date Therapeutic Interventions Therapeutic Home Exercise Program,Manual Therapy,Patient/Caregiver Interventions Education,Self-Care/Home Management,Soft Tissue Mobilization,Therapeutic Activities,Therapeutic Exercises Next Visit Focus/Plan Next Note Type Treatment Note Next Visit Plan review exercises given at today's visit and work towards improved hip and core strength
--- NOTE | 2025-01-09 17:00 | PT.OTN ---
Current Diagnoses Other chronic pain (01/09/25) Low back pain, unspecified (01/09/25) Physical Therapy Treatment Note PT OP: Pelvic Health Start: 12/31/24 13:12 Freq: Status: Active Protocol: Document 01/09/25 13:02 [facility] (Rec: 01/09/25 13:46 [facility] [id number]) Out-Patient Physical Therapy Visit Information Visit Information Visit Type Treatment Note Visit Start Time 13:00 Visit Stop Time 13:45 Visit Number 2 OP-PT Subjective Patient Comments Patient Comments pt reports she has been doing the exercises and has been trying to hinge at her hips, pt notes she has had days without pain now. Therapeutic Exercises Supine Exercises hooklying hip abduction with theraband Reps/Minutes x 10 reps level 2 TB pelvic tilt with bridge Reps/Minutes 10 Comments cues to pelvic tilt first then roll up into a bridge piriformis stretch Reps/Minutes hold 30sec-1min each side Comments she modifies the left side as it hurt her hip to be in a figure 4 supine pelvic tilt with ball squeeze Reps/Minutes x 10 reps Other Exercises sit-stand with pelvic floor engagement Reps/Minutes x 10 reps Physical Therapy Assessment Goals 3 Impairment decreased strength of the core and hip muscles, it is very difficult for Santos to perform a bridge or a mini squat in proper form Student Development Coordinator Goal (LTG) Santos presents with improved strength of her core and hip muscle strength by improving by one muscle grade LTG Duration 12 weeks 2 Impairment decreased lumbar flexion and right sidebending ROM and both cause pain Student Development Coordinator Goal (LTG) Lumbar flexion and right sidebending are WFL and pain free LTG Duration 12 weeks 1 Impairment lumbar flexion increases pain and Santos has difficulty placing any pans in the oven as it is low and she has to bend forward Short Term Goal (STG Santos is educated on correct body mechanics for ADL's ) STG Duration 4 weeks Student Development Coordinator Goal (LTG) Santos is able to improve lumbar flexion to WFL without pain and is able to use a squat position to place a dish in the oven LTG Duration 12 weeks Assessment Summary Assessment Santos is doing better this week and has been able to do her HEP. I added on pelvic tilt into a bridge and hip abduction in hooklying with theraband for HEP. I did try cat cow with her and she is very tight in her thoracic spine, she would benefit from working towards improved thoracic extension next visit Physical Therapy Plan Frequency and Duration Frequency of 2x/Week Treatment Duration of 12 treatment (weeks) Plan of Care Start 12/31/24 Date Plan of Care End 03/25/25 Date Next Visit Focus/Plan Next Note Type Treatment Note
--- NOTE | 2025-01-15 09:16 | PT-OP ANOTE ---
PROGRAM CHECKER called and left message for patient to potentially change her 01/24/25 appt with PROGRAM CHECKER to 01/23/25 with her primary PT to complete a little early 30 day progress note, knowing the PT has a full schedule early Nov when PN is due. Will speak with patient arrival of today's 1300 appt.
--- NOTE | 2025-01-15 15:20 | PT.OTN ---
Current Diagnoses Other chronic pain (01/15/25) Low back pain, unspecified (01/15/25) Physical Therapy Treatment Note PT OP: Lower Back/Lower Extremity Start: 01/15/25 12:24 Freq: Status: Active Protocol: Document 01/15/25 13:00 [facility] (Rec: 01/15/25 13:45 [facility] [id number]) Out-Patient Physical Therapy Visit Information Visit Information Visit Type Treatment Note Visit Note DEEPA Preciado led tx session with direct supervision from SILVERIO Estrella and patient permission Visit Start Time 13:00 Visit Stop Time 13:45 Visit Number 3 Number of MULTIGRAPH OPERATOR Visits 1 OP-PT Subjective Patient Comments Patient Comments Pt feeling okay. still pain that varies from day to day . She has had some pain free days since last visit. Pt walks 1-[address] per week. Therapeutic Exercises Supine Exercises hooklying hip abduction with theraband Supine Exercise Name both knees out together, with feet together Side bilateral Resistance L3 band above knees Reps/Minutes x 15 reps level 3 TB Comments Cues for slow out, slow in pelvic tilt with bridge Supine Exercise Name Ball between knees Reps/Minutes 2 x 10 Comments cues to pelvic tilt first then roll up into a bridge piriformis stretch Supine Exercise Name Reviewed from HEP, pt able to hold for 30 sec on L and 60 sec on R Reps/Minutes hold 30sec-1min each side Comments she modifies the left side as it hurt her hip to be in a figure 4 supine pelvic tilt with ball squeeze Reps/Minutes 2 x 10 reps Comments Cues for pelvic tilt while squeezing ball between knees Standing Exercises Mini squats Standing Exercise Mini squats Name Side bilateral Resistance BW Equipment Used bar Reps/Minutes x 10 Comments Cues to hinge hips, keep knees in pain free range, see toes during squat Lateral step downs Standing Exercise Lateral step down on L, the step up with R (R can't Name tolerate step down) Resistance BW Equipment Used 4 step with rail Reps/Minutes x 10 Comments Cues for slow up and down, stay pain free Wall Posture/PPT Standing Exercise Wall posture with scapular retraction and PPT Name Side bilateral Reps/Minutes x 10 Comments Cues for PPT within pain free range, scapula against wall, breathing Other Exercises sit-stand with pelvic floor engagement Other Exercise Name From 18 surface, cues for hip hinge, no use of UE Side bilateral Reps/Minutes 2 x 5 reps Comments Pt feels 10 is exhausting, educated to break up into 2 sets of 5 Therapeutic Activity Therapeutic Activity Lifting from table Name Lifting object from table Reps/Minutes x 3 Comments Working on ADL of removing items from over. Starting with small range of lift from high mat table, keep object close to body, do mini squat, put object back on table. Physical Therapy Assessment Goals 3 Impairment decreased strength of the core and hip muscles, it is very difficult for Santos to perform a bridge or a mini squat in proper form Grain Elevator Worker Goal (LTG) Santos presents with improved strength of her core and hip muscle strength by improving by one muscle grade LTG Duration 12 weeks 2 Impairment decreased lumbar flexion and right sidebending ROM and both cause pain Grain Elevator Worker Goal (LTG) Lumbar flexion and right sidebending are WFL and pain free LTG Duration 12 weeks 1 Impairment lumbar flexion increases pain and Santos has difficulty placing any pans in the oven as it is low and she has to bend forward Short Term Goal (STG Santos is educated on correct body mechanics for ADL's ) STG Duration 4 weeks Senior Living Goal (LTG) Santos is able to improve lumbar flexion to WFL without pain and is able to use a squat position to place a dish in the oven LTG Duration 12 weeks Assessment Summary Assessment Pt reports she feels good at end of session. She will just progress current HEP to using green band L3 and will do 2 sets of 10 instead of 1 as she feels able. Physical Therapy Plan Frequency and Duration Frequency of 2x/Week Treatment Duration of 12 treatment (weeks) Plan of Care Start 12/31/24 Date Plan of Care End 03/25/25 Date Therapeutic Interventions Therapeutic Home Exercise Program,Manual Therapy,Patient/Caregiver Interventions Education,Self-Care/Home Management,Soft Tissue Mobilization,Therapeutic Activities,Therapeutic Exercises Next Visit Focus/Plan Next Note Type Treatment Note Next Visit Plan Assess response to HEP progression and activity tolerance. Continue to progress with posture and standing strengthening exercises as tolerated, continue to work on core stability/TA activation. PT OP: Pelvic Health Start: 12/31/24 13:12 Freq: Status: Active Protocol: Document 01/09/25 13:02 [facility] (Rec: 01/09/25 13:46 [facility] [id number]) Out-Patient Physical Therapy Visit Information Visit Information Visit Type Treatment Note Visit Start Time 13:00 Visit Stop Time 13:45 Visit Number 2 OP-PT Subjective Patient Comments Patient Comments pt reports she has been doing the exercises and has been trying to hinge at her hips, pt notes she has had days without pain now. Therapeutic Exercises Supine Exercises hooklying hip abduction with theraband Reps/Minutes x 10 reps level 2 TB pelvic tilt with bridge Reps/Minutes 10 Comments cues to pelvic tilt first then roll up into a bridge piriformis stretch Reps/Minutes hold 30sec-1min each side Comments she modifies the left side as it hurt her hip to be in a figure 4 supine pelvic tilt with ball squeeze Reps/Minutes x 10 reps Other Exercises sit-stand with pelvic floor engagement Reps/Minutes x 10 reps Physical Therapy Assessment Goals 3 Impairment decreased strength of the core and hip muscles, it is very difficult for Santos to perform a bridge or a mini squat in proper form Grain Elevator Worker Goal (LTG) Santos presents with improved strength of her core and hip muscle strength by improving by one muscle grade LTG Duration 12 weeks 2 Impairment decreased lumbar flexion and right sidebending ROM and both cause pain Grain Elevator Worker Goal (LTG) Lumbar flexion and right sidebending are WFL and pain free LTG Duration 12 weeks 1 Impairment lumbar flexion increases pain and Santos has difficulty placing any pans in the oven as it is low and she has to bend forward Short Term Goal (STG Santos is educated on correct body mechanics for ADL's ) STG Duration 4 weeks Senior Living Goal (LTG) Santos is able to improve lumbar flexion to WFL without pain and is able to use a squat position to place a dish in the oven LTG Duration 12 weeks Assessment Summary Assessment Santos is doing better this week and has been able to do her HEP. I added on pelvic tilt into a bridge and hip abduction in hooklying with theraband for HEP. I did try cat cow with her and she is very tight in her thoracic spine, she would benefit from working towards improved thoracic extension next visit Physical Therapy Plan Frequency and Duration Frequency of 2x/Week Treatment Duration of 12 treatment (weeks) Plan of Care Start 12/31/24 Date Plan of Care End 03/25/25 Date Next Visit Focus/Plan Next Note Type Treatment Note
--- NOTE | 2025-01-21 14:51 | PT.OTN ---
Current Diagnoses Other chronic pain (01/21/25) Low back pain, unspecified (01/21/25) Physical Therapy Treatment Note PT OP: Lower Back/Lower Extremity Start: 01/15/25 12:24 Freq: Status: Active Protocol: Document 01/21/25 13:01 [facility] (Rec: 01/21/25 13:06 [facility] [id number]) Out-Patient Physical Therapy Visit Information Visit Information Visit Type Treatment Note Visit Start Time 13:00 Visit Stop Time 13:45 Visit Number 4 Number of TOOL AND DIE MAKER LEVEL FIVE Visits 0 OP-PT Subjective Patient Comments Patient Comments pt reports that she was sick last week and had to miss her Monday appt. She reports right sided piriformis soreness today, she was able to return to walking this am 22 blocks. No pain in her walks but afterwards she can feels stiff. She has been doing her exercises and stretches after her walks and this helps Patient Reported Improving Progress Therapeutic Exercises Supine Exercises lower trunk rotation Reps/Minutes knees together with LTR x 10 reps bridges Supine Exercise Name cues to pelvic tilt first and pt did this with ball between knees Reps/Minutes x 10 reps single knee to chest stretch Reps/Minutes hold 30 sec each side hooklying hip abduction with theraband Supine Exercise Name both knees out together, with feet together Side bilateral Resistance L3 band above knees Reps/Minutes x 15 reps level 3 TB Comments Cues for slow out, slow in pelvic tilt with bridge Supine Exercise Name Ball between knees Reps/Minutes 2 x 10 Comments cues to pelvic tilt first then roll up into a bridge piriformis stretch Supine Exercise Name Reviewed from HEP, pt able to hold for 30 sec on L and 60 sec on R Reps/Minutes hold 30sec-1min each side Comments she modifies the left side as it hurt her hip to be in a figure 4 supine pelvic tilt with ball squeeze Reps/Minutes 2 x 10 reps Comments Cues for pelvic tilt while squeezing ball between knees Other Exercises sit-stand with pelvic floor engagement Other Exercise Name From 18 surface, cues for hip hinge, no use of UE Side bilateral Reps/Minutes 2 x 5 reps Comments Pt feels 10 is exhausting, educated to break up into 2 sets of 5 Physical Therapy Assessment Goals 3 Impairment decreased strength of the core and hip muscles, it is very difficult for Santos to perform a bridge or a mini squat in proper form Mcfp Goal (LTG) Santos presents with improved strength of her core and hip muscle strength by improving by one muscle grade LTG Duration 12 weeks 2 Impairment decreased lumbar flexion and right sidebending ROM and both cause pain Mcfp Goal (LTG) Lumbar flexion and right sidebending are WFL and pain free LTG Duration 12 weeks 1 Impairment lumbar flexion increases pain and Santos has difficulty placing any pans in the oven as it is low and she has to bend forward Short Term Goal (STG Santos is educated on correct body mechanics for ADL's ) STG Duration 4 weeks Behavior Therapist Goal (LTG) Santos is able to improve lumbar flexion to WFL without pain and is able to use a squat position to place a dish in the oven LTG Duration 12 weeks Assessment Summary Assessment Time was spent working on hip hinge at the counter and this helped decrease left sided knee pain with sit- stand. Santos is doing much better with her exercises and she feels it is helping. She has one visit left in PT and she noted today that she feels that she will be ready to work at home independently after her next visit Monday. Physical Therapy Plan Frequency and Duration Frequency of 2x/Week Treatment Duration of 12 treatment (weeks) Plan of Care Start 12/31/24 Date Plan of Care End 03/25/25 Date Next Visit Focus/Plan Next Note Type Treatment Note Next Visit Plan Review all exercise and check in with pain symptoms, this will be Santos's last scheduled visit. She was feeling that she would be ready to DC after this next visit.
--- NOTE | 2025-01-24 13:46 | PT.OTN ---
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 Hip Strength Hip Manual Muscle Testing Left Flexion (L2) 3+ Fair+ Extension (S1) 3 Fair Abduction 4 Good Adduction 4- Good- External Rotation 3+ Fair+ Internal Rotation 3 Fair Comments supine hip Right Flexion (L2) 4 Good Extension (S1) 3 Fair Abduction 3 Fair Adduction 4 Good External Rotation 3+ Fair+ Internal Rotation 4 Good Comments supine Therapeutic Exercises Supine Exercises lower trunk rotation Supine Exercise Name LTR Side bilateral Resistance AROM Equipment Used knees and feet together Reps/Minutes x 10 reps Comments cued slower pacing bridges Resistance AROM Equipment Used yellow ball between knees Reps/Minutes x 10 reps Comments cued segmental pelvic roll up lift, slowly roll down single knee to chest stretch Equipment Used grasp behind thigh Reps/Minutes hold 30 sec each side hooklying hip abduction with theraband Supine Exercise Name both knees out together, with feet together Side bilateral Resistance L3 band above knees Reps/Minutes 5 sec hol x 15 reps Comments Good slow out, slow in piriformis stretch Supine Exercise Name Reviewed from HEP, pt able to hold for 30 sec on L and 60 sec on R Reps/Minutes hold 30sec-1min each side Comments she modifies the left side as it hurt her hip to be in a figure 4 supine pelvic tilt with ball squeeze Reps/Minutes 2 x 10 reps, 5 sec hold Comments Cues for pelvic tilt while squeezing ball between knees Standing Exercises Mini squats Standing Exercise Mini squats Name Side bilateral Resistance BW Equipment Used bar contact Reps/Minutes x 10 Comments Cues to hinge hips, keep knees in pain free range, see toes during squat Other Exercises sit-stand with pelvic floor engagement Other Exercise Name From 18 surface, cues for hip hinge, no use of UE Side bilateral Equipment Used arms across chest Reps/Minutes 2 x 5 reps Comments educated to break up into 2 sets of 5 Therapeutic Activity Therapeutic Activity Squat brain picker item from floor Name reach item off the floor. Reps/Minutes 3 reps Comments cued hip hinge, TA, straight back, improved no LBP irritation to reach for items off floor. Education provided use of a portable bench if needed to sit on to get to items on shelf under sink or move into L 1/2 k neeling and wt shift to get to items needed with TA draw in awareness and straight spine. Physical Therapy Assessment Goals 3 Impairment decreased strength of the core and hip muscles, it is very difficult for Santos to perform a bridge or a mini squat in proper form [employer] Goal (LTG) Santos presents with improved strength of her core and hip muscle strength by improving by one muscle grade 01/24/25: GOAL MET: pt has gained 1-1.5 muscle grade in strength of her hips. LTG Duration 12 weeks GOAL MET 01/24/25 2 Impairment decreased lumbar flexion and right sidebending ROM and both cause pain [employer] Goal (LTG) Lumbar flexion and right sidebending are WFL and pain free LTG Duration 12 weeks 1 Impairment lumbar flexion increases pain and Santos has difficulty placing any pans in the oven as it is low and she has to bend forward Short Term Goal (STG Santos is educated on correct body mechanics for ADL's ) 01/24/25: provided education during mini squat hip hinge HEP instruction. Discussed use of a portable bench if needed to sit on to get to items on shelf under sink or move into L 1/2 k neeling and wt shift to get to items needed with TA draw in awareness and straight spine. STG Duration 4 weeks [facility] Goal (LTG) Santos is able to improve lumbar flexion to WFL without pain and is able to use a squat position to place a dish in the oven 01/24/25: cues for hip hinge trunk flexion during mini squat exercise, cued back straight bend at hips better form with TA and pelvic floor support needed. LTG Duration 12 weeks updated 01/24/25 Assessment Summary Assessment Pt improved overall gains 1-1.5 grade in strength. Educationon hip hinge with back straight form to get items off the floor and use of portable bench to sit on but still be mindful o fback alignment. Cued as needed during ther ex and flexibility HEP. Provided SKTC and TA LTR for core and decreased tension in low back comfort range. Pt feels confident with her HEP and use of HOs to continue on her own, but knows if need further PT to call her physician for a new referral. Physical Therapy Plan Frequency and Duration Frequency of 2x/Week Treatment Duration of 12 treatment (weeks) Plan of Care Start 12/31/24 Date Plan of Care End 03/25/25 Date Therapeutic Interventions Therapeutic Home Exercise Program,Manual Therapy,Patient/Caregiver Interventions Education,Self-Care/Home Management,Soft Tissue Mobilization,Therapeutic Activities,Therapeutic Exercises Next Visit Focus/Plan Next Note Type Discharge Summary Next Visit Plan Pt last visit today, PT to complete DC.
--- NOTE | 2025-01-28 10:27 | PT.OPDS ---
Current Diagnoses Other chronic pain (01/24/25) Low back pain, unspecified (01/24/25) Visit Care Team Role Provider Type Elías Weldon MD Attending Provider Physician Family Provider Primary Care Provider Referring Provider Specialty: Internal Medicine Address: [address] [place] [address], [facility] Email: [email or web address] Visit Number Visit Number 5 Discharge Summary PT OP: Lower Back/Lower Extremity Start: 01/15/25 12:24 Freq: Status: Active Protocol: Document 01/24/25 13:03 SP (Rec: 01/24/25 13:51 SP [id number]) Out-Patient Physical Therapy Visit Information Visit Information Visit Type Treatment Note Visit Start Time 13:03 Visit Stop Time 13:46 Visit Number 5 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 Hip Strength Hip Manual Muscle Testing Left Flexion (L2) 3+ Fair+ Extension (S1) 3 Fair Abduction 4 Good Adduction 4- Good- External Rotation 3+ Fair+ Internal Rotation 3 Fair Comments supine hip Right Flexion (L2) 4 Good Extension (S1) 3 Fair Abduction 3 Fair Adduction 4 Good External Rotation 3+ Fair+ Internal Rotation 4 Good Comments supine Therapeutic Exercises Supine Exercises lower trunk rotation Supine Exercise Name LTR Side bilateral Resistance AROM Equipment Used knees and feet together Reps/Minutes x 10 reps Comments cued slower pacing bridges Resistance AROM Equipment Used yellow ball between knees Reps/Minutes x 10 reps Comments cued segmental pelvic roll up lift, slowly roll down single knee to chest stretch Equipment Used grasp behind thigh Reps/Minutes hold 30 sec each side hooklying hip abduction with theraband Supine Exercise Name both knees out together, with feet together Side bilateral Resistance L3 band above knees Reps/Minutes 5 sec hol x 15 reps Comments Good slow out, slow in piriformis stretch Supine Exercise Name Reviewed from HEP, pt able to hold for 30 sec on L and 60 sec on R Reps/Minutes hold 30sec-1min each side Comments she modifies the left side as it hurt her hip to be in a figure 4 supine pelvic tilt with ball squeeze Reps/Minutes 2 x 10 reps, 5 sec hold Comments Cues for pelvic tilt while squeezing ball between knees Standing Exercises Mini squats Standing Exercise Mini squats Name Side bilateral Resistance BW Equipment Used bar contact Reps/Minutes x 10 Comments Cues to hinge hips, keep knees in pain free range, see toes during squat Other Exercises sit-stand with pelvic floor engagement Other Exercise Name From 18 surface, cues for hip hinge, no use of UE Side bilateral Equipment Used arms across chest Reps/Minutes 2 x 5 reps Comments educated to break up into 2 sets of 5 Therapeutic Activity Therapeutic Activity Squat steel pickler item from floor Name reach item off the floor. Reps/Minutes 3 reps Comments cued hip hinge, TA, straight back, improved no LBP irritation to reach for items off floor. Education provided use of a portable bench if needed to sit on to get to items on shelf under sink or move into L 1/2 k neeling and wt shift to get to items needed with TA draw in awareness and straight spine. Physical Therapy Assessment Goals 3 Impairment decreased strength of the core and hip muscles, it is very difficult for Santos to perform a bridge or a mini squat in proper form [facility] Goal (LTG) Santos presents with improved strength of her core and hip muscle strength by improving by one muscle grade 01/24/25: GOAL MET: pt has gained 1-1.5 muscle grade in strength of her hips. LTG Duration 12 weeks GOAL MET 01/24/25 2 Impairment decreased lumbar flexion and right sidebending ROM and both cause pain [employer] Goal (LTG) Lumbar flexion and right sidebending are WFL and pain free LTG Duration 12 weeks 1 Impairment lumbar flexion increases pain and Santos has difficulty placing any pans in the oven as it is low and she has to bend forward Short Term Goal (STG Santos is educated on correct body mechanics for ADL's ) 01/24/25: provided education during mini squat hip hinge HEP instruction. Discussed use of a portable bench if needed to sit on to get to items on shelf under sink or move into L 1/2 k neeling and wt shift to get to items needed with TA draw in awareness and straight spine. STG Duration 4 weeks Tourist Guide Goal (LTG) Santos is able to improve lumbar flexion to WFL without pain and is able to use a squat position to place a dish in the oven 01/24/25: cues for hip hinge trunk flexion during mini squat exercise, cued back straight bend at hips better form with TA and pelvic floor support needed. LTG Duration 12 weeks updated 01/24/25 Assessment Summary Assessment Pt improved overall gains 1-1.5 grade in strength. Education hip hinge with back straight form to get items off the floor and use of portable bench to sit on but still be mindful o fback alignment. Cued as needed during ther ex and flexibility HEP. Provided SKTC and TA LTR for core and decreased tension in low back comfort range. Pt feels confident with her HEP and use of HOs to continue on her own, but knows if need further PT to call her physician for a new referral. Physical Therapy Plan Frequency and Duration Frequency of 2x/Week Treatment Duration of 12 treatment (weeks) Plan of Care Start 12/31/24 Date Plan of Care End 03/25/25 Date Therapeutic Interventions Therapeutic Home Exercise Program,Manual Therapy,Patient/Caregiver Interventions Education,Self-Care/Home Management,Soft Tissue Mobilization,Therapeutic Activities,Therapeutic Exercises Next Visit Focus/Plan Next Note Type Discharge Summary Next Visit Plan Pt last visit today, PT to complete DC.
== END 2025-01-28 14:30 | disposition home or self-care (01) ==
LOC: PHYS 13:00
PROVIDERS: Family Provider Internal Medicine; PCP Internal Medicine; Referring Provider Internal Medicine; Visit Provider Internal Medicine
DX: M54.50 Low back pain, unspecified (principal); G89.29 Other chronic pain
CPT/HCPCS: 97110; 97161; 97530